=== PATIENT | male | born 1955 | race Caucasian/White ===

== ENCOUNTER 2018-10-30 20:25 | Inpatient (IN) | payer MEDICAID, OTHER ==
[2018-10-30 20:26] VITALS: BMI 22.8
--- NOTE | 2018-10-30 20:53 | C.PDOC ---
History Of Present Illness Patient presents to the ER complaining of bilateral swollen legs and increased abdominal girth. Patient has been refusing to see a doctor for years. Patient is a chronic alcoholic, last drink was today. Denies fever, chills, nausea, or vomiting. Time Seen by Provider: 10/30/18 20:53 Chief Complaint (Nursing): Abdominal Pain History Per: Patient History/Exam Limitations: no limitations Onset/Duration Of Symptoms: Days Current Symptoms Are (Timing): Still Present Severity: Moderate Pain Scale Rating Of: 4 Location Of Pain/Discomfort: Diffuse Radiation Of Pain To:: None Quality Of Discomfort: Dull, Pressure Associated Symptoms: Other (Swollen legs, increased abdominal girth). denies: Fever, Chills, Nausea, Vomiting Exacerbating Factors: None Alleviating Factors: None Last Bowel Movement: Yesterday Recent travel outside of the [place]: No Additional History Per: Family Past Medical History Reviewed: Historical Data, Nursing Documentation, Vital Signs Vital Signs: Last Vital Signs Temp 98.1 F 10/30/18 20:32 Pulse 106 H 10/30/18 20:32 Resp 20 10/30/18 20:32 BP 121/80 10/30/18 20:32 Pulse Ox 95 10/30/18 20:32 - Medical History PMH: Anemia Denies: Chronic Kidney Disease Surgical History: Endoscopy - [facility] Procedures EXCISION OF STOMACH, ENDO, DIAGN (06/08/16) INSPECTION OF LOWER INTESTINAL TRACT, ENDO (08/09/15) INSPECTION OF UPPER INTESTINAL TRACT, ENDO (08/09/15) INTRODUCTION OF OTHER THERAPEUTIC SUBSTANCE INTO UP GI, ENDO (06/08/16) TRANSFUSE NONAUT RED BLOOD CELLS IN PERIPH VEIN, PERC (08/09/15) Family History: States: No Known Family Hx - Social History Hx Alcohol Use: Yes (3-4 bottles beer per day) Hx Substance Use: No - Immunization History Hx Tetanus Toxoid Vaccination: No Hx Influenza Vaccination: No Hx Pneumococcal Vaccination: No Review Of Systems Constitutional: Negative for: Fever, Chills Cardiovascular: Negative for: Chest Pain, Palpitations Respiratory: Negative for: Cough, Shortness of Breath Gastrointestinal: Positive for: Other (Increased abdominal girth). Negative for: Nausea, Vomiting Musculoskeletal: Positive for: Other (Bilateral swollen legs) Neurological: Negative for: Weakness, Numbness Physical Exam - Physical Exam Appears: Non-toxic Skin: Warm, Dry, Other (Somewhat cachetic) Head: Normacephalic Eye(s): bilateral: Scleral Icterus Oral Mucosa: Dry Neck: Trachea Midline, Supple Chest: Symmetrical, No Tenderness Cardiovascular: Rhythm Regular Respiratory: No Rales, Rhonchi (Scattered), No Wheezing Gastrointestinal/Abdominal: Soft, No Tenderness, Other (Very distended with positive fluid wave, unable to percuss liver due to girth) Back: No CVA Tenderness Extremity: Pedal Edema (Bilateral up to thigh) Extremity: Bilateral: Atraumatic Pulses: Left Dorsalis Pedis: Normal, Right Dorsalis Pedis: Normal Neurological/Psych: Oriented x3, Other (No flapping tremor) Gait: With Assistance ED Course And Treatment - Laboratory Results Result Diagrams: 10/30/18 22:08 10/30/18 22:08 ECG: Interpreted By Me, Viewed By Me ECG Rhythm: Sinus Rhythm, ST/T Changes, Nonspecific Changes O2 Sat by Pulse Oximetry: 95 (Room air) Pulse Ox Interpretation: Normal - Radiology CXR: Interpreted by Me, Viewed By Me CXR Interpretation: Yes: Cardiomegaly, Other (ascitis, right effusion). No: Infiltrates, Fracture Progress Note: Blood work, EKG, CXR, and urinalysis ordered. Disposition Discussed With DrRadha: Zachary Bergman Comment: accepted the pt on his service and took over the care at 12:00AM Doctor Will See Patient In The: ED Counseled Patient/Family Regarding: Studies Performed, Diagnosis - Disposition Disposition: HOSPITALIZED Disposition Time: 20:53 Condition: GUARDED Forms: [facility] ([place]) - POA Present On Arrival: Poor Glycemic Control - Clinical Impression Clinical Impression: Abdominal pain, Ascites, Anemia, ETOH abuse, Cirrhosis - Scribe Statement The provider has reviewed the documentation as recorded by the Scribann Nash All medical record entries made by the Scribe were at my direction and personally dictated by me. I have reviewed the chart and agree that the record accurately reflects my personal performance of the history, physical exam, medical decision making, and the department course for this patient. I have also personally directed, reviewed, and agree with the discharge instructions and disposition. Decision To Admit - Pt Status Changed To: Hospital Disposition Of: Inpatient - Admit Certification Admit to Inpatient:: After my assessment, the patient will require hosp italization for at least two midnights. This is because of the severity of symptoms shown, intensity of services needed, and/or the medical risk in this patient being treated as an outpatient. - InPatient: Physician Admission Certification:: After my assessment, the patient will require hospitalization for at least two midnights. This is because of the gianni rity of symptoms shown, intensity of services needed, and/or the medical risk in this patient being treated as an outpatient. - . Bed Request Type: Regular Admitting Physician: Zachary Bergman Patient Diagnosis: Abdominal pain, Ascites, Anemia, ETOH abuse, Cirrhosis
[2018-10-30 22:27] LABS: BASO % 1.3 % (0.0-2.0); EOS # 0.1 K/uL (0.0-0.7); EOS % 3.7 % (0.0-4.0); HEMOGLOBIN 8.1 g/dL (12.0-18.0); LYMPH # 1.1 K/uL (1.0-4.3); LYMPH % 42.9 % (20.0-40.0); MEAN CELL VOLUME 66.4 fL (80.0-94.0); MEAN CORPUSCULAR HEMOGLOBIN 20.3 pg (27.0-31.0); MEAN CORPUSCULAR HGB CONC 30.5 g/dL (33.0-37.0); MEAN PLATELET VOLUME 8.4 fL (7.2-11.7); MONO # 0.3 K/uL (0.0-0.8); MONO % 11.4 % (0.0-10.0); NEUT # 1.1 K/uL (1.8-7.0); NEUT % 40.7 % (50.0-75.0); NRBC % 0.1 % (0.0-2.0); RBC 4.01 Mil/uL (4.40-5.90); RED CELL DISTRIBUTION WIDTH 19.7 % (11.5-14.5)
[2018-10-30 22:30] LABS: INR 2.1; PROTHROMBIN TIME 23.4 SECONDS (9.7-12.2)
[2018-10-30 22:32] LABS: ALB/GLOB RATIO 0.6 (1.0-2.1); ALBUMIN 2.6 g/dL (3.5-5.0); ALT/SGPT 25 U/L (21-72); AST/SGOT 37 U/L (17-59); BLOOD UREA NITROGEN 12 mg/dL (9-20); CALCIUM 7.7 mg/dl (8.6-10.4); GFR NON-AFRICAN AMERICAN > 60; LIPASE 71 U/L (23-300)
[2018-10-30 22:34] LABS: WHITE BLOOD COUNT 2.7 K/uL (4.8-10.8)
[2018-10-30 22:43] LABS: B-TYPE NATRIURETIC PEPTIDE 74.3 pg/mL (0-900)
[2018-10-30] MEDS ORDERED: Iodixanol 320 MG/ML 100 ML BOTTLE IV ONE ×2 (22:56→23:07)
--- NOTE | 2018-10-31 00:37 | CP.PCM.HP ---
<Deuce Pugh - Last Filed: 10/31/18 06:26> History of Present Illness - History of Present Illness History of Present Illness: cc: abdominal swelling and pain Patient is a 63 year old male with pmhx of DMII and HTN that came to the ER for increased abdominal swelling and pain. Patient state he noted his abdomen to get distended about a month ago, starting on the left lower quadrant and then, the swelling increasing in right upper quadrant area of abdomen. Patient admits to drinking 6 packs of beer every day for the past 20 years, and states he believes alcohol is what is causing his abdomen to be distended. Patient admits to having bilateral leg swelling that started a couple of months ago, and states he first saw his lower extremity swell before seeing his abdomen get distended. Admits to shortness of breath when walking as well as pain in LE. denies fever, chills, chest pain, shortness of breath, n/v/d/c or urinary symptoms. PMD: none, has not seen one since last ER visit 2 years ago All: Penicillin Pmhx: DM, HTN Shx: left arm surgery from trauma (2016) Fmhx: DM (mother and father) Sochx: denies smoking, drinks 6 packs of beer/daily x 20 years, denies drug use Meds: none Present on Admission - Present on Admission Any Indicators Present on Admission: No Past Patient History - Infectious Disease Hx of Infectious Diseases: None - Past Medical History & Family History Past Medical History?: Yes - Past Social History Smoking Status: Never Smoked - CARDIAC Hx Cardiac Disorders: No - PULMONARY Hx Respiratory Disorders: Yes (ABN X RAY) - NEUROLOGICAL Hx Neurological Disorder: No - HEENT Hx Blind: Yes (RIGHT EYE) - RENAL Hx Chronic Kidney Disease: No - ENDOCRINE/METABOLIC Hx Diabetes Mellitus Type 2: Yes - HEMATOLOGICAL/ONCOLOGICAL Hx Anemia: Yes - INTEGUMENTARY Hx Dermatological Problems: No - MUSCULOSKELETAL/RHEUMATOLOGICAL Hx Musculoskeletal Disorders: No - GASTROINTESTINAL Hx Gastrointestinal Disorders: Yes (HX ASCITES) - GENITOURINARY/GYNECOLOGICAL Hx Genitourinary Disorders: No - PSYCHIATRIC Hx Substance Use: No - SURGICAL HISTORY Other/Comment: left arm / surgery - ANESTHESIA Hx Anesthesia: Yes Hx Anesthesia Reactions: No Hx Malignant Hyperthermia: No Meds Allergies/Adverse Reactions: Allergies Allergy/AdvReac Type Severity Reaction Status Date / Time Penicillins Allergy Verified 10/30/18 20:40 Physical Exam - Constitutional Appears: Non-toxic, No Acute Distress - Head Exam Head Exam: ATRAUMATIC, NORMAL INSPECTION, NORMOCEPHALIC - Eye Exam Eye Exam: EOMI - ENT Exam ENT Exam: Mucous Membranes Moist, Normal Exam - Neck Exam Neck exam: Positive for: Normal Inspection - Respiratory Exam Respiratory Exam: Clear to Auscultation Bilateral, NORMAL BREATHING PATTERN. absent: Rales, Rhonchi, Wheezes - Cardiovascular Exam Cardiovascular Exam: REGULAR RHYTHM, +S1, +S2 - GI/Abdominal Exam GI & Abdominal Exam: Distended, Firm. absent: Normal Bowel Sounds, Tenderness Additional comments: ascites - Extremities Exam Extremities exam: Positive for: full ROM, pedal edema. Negative for: tenderness Additional comments: 3+ pitting edema on b/l thigh, leg and foot. - Back Exam Back exam: NORMAL INSPECTION - Neurological Exam Neurological exam: Alert, Oriented x3 - Psychiatric Exam Psychiatric exam: Normal Affect, Normal Mood - Skin Skin Exam: Dry, Intact, Warm Results - Vital Signs Recent Vital Signs: Last Vital Signs Temp 98.1 F 10/30/18 20:32 Pulse 106 H 10/30/18 20:32 Resp 20 10/30/18 20:32 BP 121/80 10/30/18 20:32 Pulse Ox 95 10/31/18 00:01 - Labs Result Diagrams: 10/30/18 22:08 10/30/18 22:08 Labs: Laboratory Results - last 24 hr 10/30/18 10/30/18 10/30/18 22:08 22:08 22:08 WBC 2.7 L D RBC 4.01 L Hgb 8.1 L D Hct 26.6 L MCV 66.4 L D MCH 20.3 L MCHC 30.5 L RDW 19.7 H Plt Count 171 MPV 8.4 Neut % (Auto) 40.7 L Lymph % (Auto) 42.9 H Gage % (Auto) 11.4 H Eos % (Auto) 3.7 Baso % (Auto) 1.3 Neut # (Auto) 1.1 L Lymph # (Auto) 1.1 Gage # (Auto) 0.3 Eos # (Auto) 0.1 Baso # (Auto) 0.0 PT 23.4 H INR 2.1 APTT 37 H Sodium 137 Potassium 4.2 Chloride 109 H Carbon Dioxide 22 Anion Gap 11 BUN 12 Creatinine 0.5 L Est GFR ( Amer) > 60 Est GFR (Non-Af Amer) > 60 Random Glucose 112 H D Calcium 7.7 L Total Bilirubin 2.7 H AST 37 ALT 25 Alkaline Phosphatase 128 H Ammonia NT-Pro-B Natriuret Pep 74.3 Total Protein 6.8 Albumin 2.6 L Globulin 4.2 H Albumin/Globulin Ratio 0.6 L Lipase 71 Alcohol, Quantitative Blood Type Antibody Screen 10/30/18 10/30/18 10/31/18 22:08 22:08 00:14 WBC RBC Hgb Hct MCV MCH MCHC RDW Plt Count MPV Neut % (Auto) Lymph % (Auto) Gage % (Auto) Eos % (Auto) Baso % (Auto) Neut # (Auto) Lymph # (Auto) Gage # (Auto) Eos # (Auto) Baso # (Auto) PT INR APTT Sodium Potassium Chloride Carbon Dioxide Anion Gap BUN Creatinine Est GFR ( Amer) Est GFR (Non-Af Amer) Random Glucose Calcium Total Bilirubin AST ALT Alkaline Phosphatase Ammonia 24 NT-Pro-B Natriuret Pep Total Protein Albumin Globulin Albumin/Globulin Ratio Lipase Alcohol, Quantitative < 10 Blood Type A POSITIVE Antibody Screen Negative Assessment & Plan - Assessment and Plan (Free Text) Plan: Ascites/Fluid overloaded possible due to cirrhosis - based on physical exam - ALT/AST: 37/25 Lipase 21 - Vitals within normal limits - Chest Xray - ascitis, right effusion, cardiomegaly - will follow official report - EKG: Sinus Rhythm, ST/T Changes, Nonspecific Changes - Abd and pelvis CT IV contrast - multifocal subsegmental atelectatic airspace disease in the right lower lobe and lingula. Large ascites, increased. Chronic parenchymal liver disease. prominent periesophageal/perigastric varicosities. Mesenteric edema/congestion. Multifocal edema of small bowel, probably secondary to portal hypertension - Albumin 25gm IV x 1 - Spirinolactone 50mg PO x 1 tonight - Spirinolactone 50mg PO Daily - Lasix 40mg IVP x 1 dose tonight - Lasix 40mg IVP Daily - GI consult - Dr Chandler - help is appreciated - Echo- f/u in am Alcohol use disorder - Ativan 1mg PO Q6 [facility] protocol - Multivitamin/Thiamine Microcytic anemia - Hg 8.1, MCV : 66.4 - no acute bleeding at this time - Vitamin B12 - Iron panel - Folate elevated PT/PTT - Vitamin K 10mg PO Daily - f/u coags Hx of HTN - Normotensive at this time - Patient does not take home meds Hx of DM - Patient does not take home meds - Accuchecks - HbA1c - f/u PPX - HHD - DVT ppx C/I for PT longer than 18, no SCDS due to B/L LE pitting edema - GI: Protonix 40mg IVP daily Plan discussed with Dr Madalyn Pugh, PGY-1 - Date & Time Date: 10/31/18 Time: 01:00 <Zachary Bergman - Last Filed: 10/31/18 07:52> Results - Vital Signs Recent Vital Signs: Last Vital Signs Temp 98.0 F 10/31/18 04:00 Pulse 108 H 10/31/18 04:00 Resp 20 10/31/18 04:00 BP 138/81 10/31/18 04:00 Pulse Ox 93 L 10/31/18 04:00 - Labs Result Diagrams: 10/30/18 22:08 10/30/18 22:08 Labs: Laboratory Results - last 24 hr 10/30/18 10/30/18 10/30/18 22:08 22:08 22:08 WBC 2.7 L D RBC 4.01 L Hgb 8.1 L D Hct 26.6 L MCV 66.4 L D MCH 20.3 L MCHC 30.5 L RDW 19.7 H Plt Count 171 MPV 8.4 Neut % (Auto) 40.7 L Lymph % (Auto) 42.9 H Gage % (Auto) 11.4 H Eos % (Auto) 3.7 Baso % (Auto) 1.3 Neut # (Auto) 1.1 L Lymph # (Auto) 1.1 Gage # (Auto) 0.3 Eos # (Auto) 0.1 Baso # (Auto) 0.0 PT 23.4 H INR 2.1 APTT 37 H Sodium 137 Potassium 4.2 Chloride 109 H Carbon Dioxide 22 Anion Gap 11 BUN 12 Creatinine 0.5 L Est GFR ( Amer) > 60 Est GFR (Non-Af Amer) > 60 POC Glucose (mg/dL) Random Glucose 112 H D Calcium 7.7 L Iron TIBC % Saturation Total Bilirubin 2.7 H AST 37 ALT 25 Alkaline Phosphatase 128 H Ammonia NT-Pro-B Natriuret Pep 74.3 Total Protein 6.8 Albumin 2.6 L Globulin 4.2 H Albumin/Globulin Ratio 0.6 L Lipase 71 Urine Color Urine Clarity Urine pH Ur Specific Canones Urine Protein Urine Glucose (UA) Urine Ketones Urine Blood Urine Nitrate Urine Bilirubin Urine Urobilinogen Ur Leukocyte Esterase Urine WBC (Auto) Urine RBC (Auto) Ur Squamous Epith Cells Urine Bacteria Alcohol, Quantitative Blood Type Antibody Screen 10/30/18 10/30/18 10/31/18 22:08 22:08 00:14 WBC RBC Hgb Hct MCV MCH MCHC RDW Plt Count MPV Neut % (Auto) Lymph % (Auto) Gage % (Auto) Eos % (Auto) Baso % (Auto) Neut # (Auto) Lymph # (Auto) Gage # (Auto) Eos # (Auto) Baso # (Auto) PT INR APTT Sodium Potassium Chloride Carbon Dioxide Anion Gap BUN Creatinine Est GFR ( Amer) Est GFR (Non-Af Amer) POC Glucose (mg/dL) Random Glucose Calcium Iron TIBC % Saturation Total Bilirubin AST ALT Alkaline Phosphatase Ammonia 24 NT-Pro-B Natriuret Pep Total Protein Albumin Globulin Albumin/Globulin Ratio Lipase Urine Color Urine Clarity Urine pH Ur Specific Canones Urine Protein Urine Glucose (UA) Urine Ketones Urine Blood Urine Nitrate Urine Bilirubin Urine Urobilinogen Ur Leukocyte Esterase Urine WBC (Auto) Urine RBC (Auto) Ur Squamous Epith Cells Urine Bacteria Alcohol, Quantitative < 10 Blood Type A POSITIVE Antibody Screen Negative 10/31/18 10/31/18 10/31/18 02:06 06:11 06:44 WBC RBC Hgb Hct MCV MCH MCHC RDW Plt Count MPV Neut % (Auto) Lymph % (Auto) Gage % (Auto) Eos % (Auto) Baso % (Auto) Neut # (Auto) Lymph # (Auto) Gage # (Auto) Eos # (Auto) Baso # (Auto) PT INR APTT Sodium Potassium Chloride Carbon Dioxide Anion Gap BUN Creatinine Est GFR ( Amer) Est GFR (Non-Af Amer) POC Glucose (mg/dL) 146 H Random Glucose Calcium Iron 23 L TIBC 381 % Saturation 6 L Total Bilirubin AST ALT Alkaline Phosphatase Ammonia NT-Pro-B Natriuret Pep Total Protein Albumin Globulin Albumin/Globulin Ratio Lipase Urine Color Gladys Urine Clarity Clear Urine pH 6.0 Ur Specific Canones > 1.060 H Urine Protein Negative Urine Glucose (UA) Normal Urine Ketones Trace Urine Blood Negative Urine Nitrate Negative Urine Bilirubin Negative Urine Urobilinogen 4.0 Ur Leukocyte Esterase Neg Urine WBC (Auto) 1 Urine RBC (Auto) 1 Ur Squamous Epith Cells < 1 Urine Bacteria Rare Alcohol, Quantitative Blood Type Antibody Screen 10/31/18 06:44 WBC RBC Hgb Hct MCV MCH MCHC RDW Plt Count MPV Neut % (Auto) Lymph % (Auto) Gage % (Auto) Eos % (Auto) Baso % (Auto) Neut # (Auto) Lymph # (Auto) Gage # (Auto) Eos # (Auto) Baso # (Auto) PT INR APTT Sodium Potassium Chloride Carbon Dioxide Anion Gap BUN Creatinine Est GFR ( Amer) Est GFR (Non-Af Amer) POC Glucose (mg/dL) Random Glucose Calcium Iron 19 L TIBC % Saturation 5 L Total Bilirubin AST ALT Alkaline Phosphatase Ammonia NT-Pro-B Natriuret Pep Total Protein Albumin Globulin Albumin/Globulin Ratio Lipase Urine Color Urine Clarity Urine pH Ur Specific Canones Urine Protein Urine Glucose (UA) Urine Ketones Urine Blood Urine Nitrate Urine Bilirubin Urine Urobilinogen Ur Leukocyte Esterase Urine WBC (Auto) Urine RBC (Auto) Ur Squamous Epith Cells Urine Bacteria Alcohol, Quantitative Blood Type Antibody Screen Attending/Attestation - Attestation I have personally seen and examined this patient.: Yes I have fully participated in the care of the patient.: Yes I have reviewed all pertinent clinical information: Yes Notes (Text): 10/31/18 07:44 * Alcoholic liver cirrhosis with massive ascitis and 4+ edema * hepatic failure with low albumin, elevated inr * Active alcohol consumption in moderate amount * Microcytic anemia suggesting chronic blood loss * H/o prior gi bleeding, and black stools a month back * Intravascular volume stable Plan * IV albumin, +/-blood * Diuresis with lasix and spirnolactone * PPI * Thiamine, fa, mvt, schedule and prn ativan * Vit K * Possible ascitic tap. * Counselled about alcohol cessation * See orders for detail.
[2018-10-31 02:29] LABS: SQUAMOUS EPITHIAL < 1 /hpf (0-5); URINE BACTERIA RARE (<OCC); URINE BILIRUBIN NEGATIVE (NEGATIVE); URINE BLOOD NEGATIVE (NEGATIVE); URINE CLARITY Clear (Clear); URINE COLOR Amber (YELLOW); URINE GLUCOSE (UA) NORMAL (Normal); URINE LEUKOCYTE ESTERASE NEG Leu/uL (Negative); URINE PROTEIN NEGATIVE (NEGATIVE)
[2018-10-31] MEDS ORDERED: Albumin Human 25% (12.5 gm/50 ml) IV ONE (02:30)
[2018-10-31 07:21] LABS: IRON 19 ug/dL (49-181); IRON 23 ug/dL (49-181)
[2018-10-31 07:30] LABS: % IRON SATURATION 5 (20-55); % IRON SATURATION 6 (20-55); TOTAL IRON BINDING CAPACITY 381 ug/dL (250-450)
--- NOTE | 2018-10-31 09:06 | RAD ---
Date of service: 10/30/2018 PROCEDURE: CHEST RADIOGRAPH, 1 VIEW HISTORY: Abdominal pain COMPARISON: None available. FINDINGS: LUNGS: There are low lung volumes. There is moderate pulmonary venous congestion. PLEURA: Suspect small effusions. No pneumothorax. CARDIOVASCULAR: Mild cardiomegaly. No aortic atherosclerotic calcifications present. OSSEOUS STRUCTURES: Within normal limits for the patient's age. VISUALIZED UPPER ABDOMEN: Normal. OTHER FINDINGS: Diffuse opacification of the abdomen with elevation of the diaphragm most compatible with ascites. IMPRESSION: Mild cardiomegaly and pulmonary venous congestion. Ascites.
[2018-10-31] MEDS: Multiple Vitamins Oral Solution PO SCH (09:21)
--- NOTE | 2018-10-31 09:38 | CP.PCM.CON ---
History of Present Illness - History of Present Illness History of Present Illness: GI Service Consult cc: anemia, ascites HPI: GI consult requested to evaluate this 63 yr old man for ascites and anemia. Pt is a poor historian. Chart review reveals long h/o cirrhosis, ascites, had EGD and Colonoscopy [address] Wang- small varices + . Now with anasarca and dyspnea x 1 month. Does not see a doctor, nor does he take medications. Known history of alcoholic cirrhosis and ascites. Now with severe iron deficiency a nemia. Pt saw black stool 1 month ago, now brown colored. Recently constipated. Past Patient History - Infectious Disease Hx of Infectious Diseases: None - Past Medical History & Family History Past Medical History?: Yes - Past Social History Smoking Status: Never Smoked - CARDIAC Hx Cardiac Disorders: No - PULMONARY Hx Respiratory Disorders: Yes (ABN X RAY) - NEUROLOGICAL Hx Neurological Disorder: No - HEENT Hx Blind: Yes (RIGHT EYE) - RENAL Hx Chronic Kidney Disease: No - ENDOCRINE/METABOLIC Hx Diabetes Mellitus Type 2: Yes - HEMATOLOGICAL/ONCOLOGICAL Hx Anemia: Yes - INTEGUMENTARY Hx Dermatological Problems: No - MUSCULOSKELETAL/RHEUMATOLOGICAL Hx Musculoskeletal Disorders: No - GASTROINTESTINAL Hx Gastrointestinal Disorders: Yes (HX ASCITES) - GENITOURINARY/GYNECOLOGICAL Hx Genitourinary Disorders: No - PSYCHIATRIC Hx Substance Use: No - SURGICAL HISTORY Other/Comment: left arm / surgery - ANESTHESIA Hx Anesthesia: Yes Hx Anesthesia Reactions: No Hx Malignant Hyperthermia: No Meds Allergies/Adverse Reactions: Allergies Allergy/AdvReac Type Severity Reaction Status Date / Time Penicillins Allergy Verified 10/30/18 20:40 - Medications Medications: Current Medications Furosemide (Lasix) 40 mg IVP DAILY [facility] Last Admin: 10/31/18 09:21 Dose: 40 mg Influenza Virus Vaccine (Flucelvax Quad [id number] Syr) 60 mcg IM .ONCE ONE Stop: 11/02/18 14:01 Lorazepam (Ativan) 1 mg PO Q6H [facility] Last Admin: 10/31/18 08:03 Dose: 1 mg Multivitamins/Vitamin C (Multi-Delyn Liquid) 5 ml PO DAILY [facility] Last Admin: 10/31/18 09:21 Dose: 5 ml Pantoprazole Sodium (Protonix Inj) 40 mg IVP DAILY [facility] Last Admin: 10/31/18 09:21 Dose: 40 mg Phytonadione (Vitamin K Tab) 10 mg PO DAILY [facility] Last Admin: 10/31/18 09:21 Dose: 10 mg Pneumococcal Polyvalent Vaccine (Pneumovax 23 Vaccine) 0.5 ml IM .ONCE ONE Stop: 11/02/18 14:01 Spironolactone (Aldactone) 50 mg PO DAILY [facility] Last Admin: 10/31/18 09:21 Dose: 50 mg Thiamine HCl (Vitamin B1 Tab) 100 mg PO DAILY [facility] Last Admin: 10/31/18 09:21 Dose: 100 mg Physical Exam - Constitutional Appears: Chronically Ill - Head Exam Additional comments: bitemporal wasting - Eye Exam Eye Exam: Scleral icterus - Respiratory Exam Respiratory Exam: NORMAL BREATHING PATTERN - Cardiovascular Exam Cardiovascular Exam: REGULAR RHYTHM - GI/Abdominal Exam GI & Abdominal Exam: Distended (massive ascites. Nontender. Organomegaly not appreciated) - Extremities Exam Additional comments: Massive pitting edema of lower exts from toes up to thighs - Neurological Exam Neurological exam: Alert, Oriented x3 - Psychiatric Exam Psychiatric exam: Flat Affect - Skin Additional comments: spider angiomata present on abdominal wall Results - Vital Signs Recent Vital Signs: Last Vital Signs Temp 97.7 F 10/31/18 08:22 Pulse 112 H 10/31/18 08:22 Resp 20 10/31/18 08:22 BP 133/86 10/31/18 09:21 Pulse Ox 94 L 10/31/18 08:22 - Labs Result Diagrams: 10/30/18 22:08 10/30/18 22:08 Labs: Laboratory Results - last 24 hr 10/30/18 10/30/18 10/30/18 22:08 22:08 22:08 WBC 2.7 L D RBC 4.01 L Hgb 8.1 L D Hct 26.6 L MCV 66.4 L D MCH 20.3 L MCHC 30.5 L RDW 19.7 H Plt Count 171 MPV 8.4 Neut % (Auto) 40.7 L Lymph % (Auto) 42.9 H [place] % (Auto) 11.4 H Eos % (Auto) 3.7 Baso % (Auto) 1.3 Neut # (Auto) 1.1 L Lymph # (Auto) 1.1 [place] # (Auto) 0.3 Eos # (Auto) 0.1 Baso # (Auto) 0.0 PT 23.4 H INR 2.1 APTT 37 H Sodium 137 Potassium 4.2 Chloride 109 H Carbon Dioxide 22 Anion Gap 11 BUN 12 Creatinine 0.5 L Est GFR ( Amer) > 60 Est GFR (Non-Af Amer) > 60 POC Glucose (mg/dL) Random Glucose 112 H D Calcium 7.7 L Iron TIBC % Saturation Total Bilirubin 2.7 H AST 37 ALT 25 Alkaline Phosphatase 128 H Ammonia NT-Pro-B Natriuret Pep 74.3 Total Protein 6.8 Albumin 2.6 L Globulin 4.2 H Albumin/Globulin Ratio 0.6 L Lipase 71 Urine Color Urine Clarity Urine pH Ur Specific [place] Urine Protein Urine Glucose (UA) Urine Ketones Urine Blood Urine Nitrate Urine Bilirubin Urine Urobilinogen Ur Leukocyte Esterase Urine WBC (Auto) Urine RBC (Auto) Ur Squamous Epith Cells Urine Bacteria Alcohol, Quantitative Blood Type Antibody Screen 10/30/18 10/30/18 10/31/18 22:08 22:08 00:14 WBC RBC Hgb Hct MCV MCH MCHC RDW Plt Count MPV Neut % (Auto) Lymph % (Auto) [place] % (Auto) Eos % (Auto) Baso % (Auto) Neut # (Auto) Lymph # (Auto) [place] # (Auto) Eos # (Auto) Baso # (Auto) PT INR APTT Sodium Potassium Chloride Carbon Dioxide Anion Gap BUN Creatinine Est GFR ( Amer) Est GFR (Non-Af Amer) POC Glucose (mg/dL) Random Glucose Calcium Iron TIBC % Saturation Total Bilirubin AST ALT Alkaline Phosphatase Ammonia 24 NT-Pro-B Natriuret Pep Total Protein Albumin Globulin Albumin/Globulin Ratio Lipase Urine Color Urine Clarity Urine pH Ur Specific [place] Urine Protein Urine Glucose (UA) Urine Ketones Urine Blood Urine Nitrate Urine Bilirubin Urine Urobilinogen Ur Leukocyte Esterase Urine WBC (Auto) Urine RBC (Auto) Ur Squamous Epith Cells Urine Bacteria Alcohol, Quantitative < 10 Blood Type A POSITIVE Antibody Screen Negative 10/31/18 10/31/18 10/31/18 02:06 06:11 06:44 WBC RBC Hgb Hct MCV MCH MCHC RDW Plt Count MPV Neut % (Auto) Lymph % (Auto) [place] % (Auto) Eos % (Auto) Baso % (Auto) Neut # (Auto) Lymph # (Auto) [place] # (Auto) Eos # (Auto) Baso # (Auto) PT INR APTT Sodium Potassium Chloride Carbon Dioxide Anion Gap BUN Creatinine Est GFR ( Amer) Est GFR (Non-Af Amer) POC Glucose (mg/dL) 146 H Random Glucose Calcium Iron 23 L TIBC 381 % Saturation 6 L Total Bilirubin AST ALT Alkaline Phosphatase Ammonia NT-Pro-B Natriuret Pep Total Protein Albumin Globulin Albumin/Globulin Ratio Lipase Urine Color Gladys Urine Clarity Clear Urine pH 6.0 Ur Specific [place] > 1.060 H Urine Protein Negative Urine Glucose (UA) Normal Urine Ketones Trace Urine Blood Negative Urine Nitrate Negative Urine Bilirubin Negative Urine Urobilinogen 4.0 Ur Leukocyte Esterase Neg Urine WBC (Auto) 1 Urine RBC (Auto) 1 Ur Squamous Epith Cells < 1 Urine Bacteria Rare Alcohol, Quantitative Blood Type Antibody Screen 10/31/18 06:44 WBC RBC Hgb Hct MCV MCH MCHC RDW Plt Count MPV Neut % (Auto) Lymph % (Auto) [place] % (Auto) Eos % (Auto) Baso % (Auto) Neut # (Auto) Lymph # (Auto) [place] # (Auto) Eos # (Auto) Baso # (Auto) PT INR APTT Sodium Potassium Chloride Carbon Dioxide Anion Gap BUN Creatinine Est GFR ( Amer) Est GFR (Non-Af Amer) POC Glucose (mg/dL) Random Glucose Calcium Iron 19 L TIBC % Saturation 5 L Total Bilirubin AST ALT Alkaline Phosphatase Ammonia NT-Pro-B Natriuret Pep Total Protein Albumin Globulin Albumin/Globulin Ratio Lipase Urine Color Urine Clarity Urine pH Ur Specific [place] Urine Protein Urine Glucose (UA) Urine Ketones Urine Blood Urine Nitrate Urine Bilirubin Urine Urobilinogen Ur Leukocyte Esterase Urine WBC (Auto) Urine RBC (Auto) Ur Squamous Epith Cells Urine Bacteria Alcohol, Quantitative Blood Type Antibody Screen Assessment & Plan (1) Anemia Assessment and Plan: severe iron deficiency without active bleeding Will need elective EGD when medically stable PPI empirically Monitor for bleeding Correct coagulopathy Status: Acute (2) Cirrhosis Assessment and Plan: alcoholic cirrhosis with massive ascites/anasarca Needs diagnostic paracentesis after correction of coagulopathy Start diuretics, low salt diet, monitor daily weights D/W attending Status: Acute - Date & Time Date: 10/31/18 Time: 09:45
--- NOTE | 2018-10-31 10:35 | CP.PCM.PN ---
Subjective - Date & Time of Evaluation Date of Evaluation: 10/31/18 Time of Evaluation: 09:45 - Subjective Subjective: Patient was seen and examined by me Reviewed HPI Patient was not in any acute distress when we came and saw him this morning. Patient has history of liver cirrhotics as well as alcohol abuse Reported the abdomen distention as previously mentioned. He is having difficulty breathing from the distention. Otherwise denies chest pain, denies palpitations. He received vitamin K last night and albumin x 1. Also on lasix and aldactone Objective - Vital Signs/Intake and Output Vital Signs (last 24 hours): Temp Pulse Resp BP Pulse Ox 97.7 F 112 H 20 133/86 94 L 10/31/18 08:22 10/31/18 08:22 10/31/18 08:22 10/31/18 09:21 10/31/18 08:22 Intake and Output: 10/31/18 10/31/18 06:59 18:59 Intake Total 520 Output Total 600 Balance -80 - Medications Medications: Current Medications Furosemide (Lasix) 40 mg IVP DAILY [facility] Last Admin: 10/31/18 09:21 Dose: 40 mg Influenza Virus Vaccine (Flucelvax Quad [id number] Syr) 60 mcg IM .ONCE ONE Stop: 11/02/18 14:01 Lorazepam (Ativan) 1 mg PO Q6H [facility] Last Admin: 10/31/18 08:03 Dose: 1 mg Multivitamins/Vitamin C (Multi-Delyn Liquid) 5 ml PO DAILY [facility] Last Admin: 10/31/18 09:21 Dose: 5 ml Pantoprazole Sodium (Protonix Ec Tab) 40 mg PO DAILY [facility] Phytonadione (Vitamin K Tab) 10 mg PO DAILY [facility] Last Admin: 10/31/18 09:21 Dose: 10 mg Pneumococcal Polyvalent Vaccine (Pneumovax 23 Vaccine) 0.5 ml IM .ONCE ONE Stop: 11/02/18 14:01 Spironolactone (Aldactone) 50 mg PO DAILY [facility] Last Admin: 10/31/18 09:21 Dose: 50 mg Thiamine HCl (Vitamin B1 Tab) 100 mg PO DAILY [facility] Last Admin: 10/31/18 09:21 Dose: 100 mg - Labs Labs: 10/30/18 22:08 10/30/18 22:08 PT 23.4 SECONDS (9.7-12.2) H 10/30/18 22:08 INR 2.1 10/30/18 22:08 APTT 37 SECONDS (21-34) H 10/30/18 22:08 - Constitutional Appears: No Acute Distress, Unkempt, Chronically Ill - Head Exam Head Exam: NORMAL INSPECTION, NORMOCEPHALIC - Eye Exam Eye Exam: EOMI, Normal appearance - ENT Exam ENT Exam: Mucous Membranes Moist - Respiratory Exam Respiratory Exam: Decreased Breath Sounds, Rales - Cardiovascular Exam Cardiovascular Exam: REGULAR RHYTHM - GI/Abdominal Exam GI & Abdominal Exam: Distended, Soft. absent: Firm, Guarding, Rigid, Tenderness Additional comments: Very distended abdomen with fluid wave shifting - Extremities Exam Extremities Exam: Pedal Edema Additional comments: Bilateral heavy pitting edema +3 - Neurological Exam Neurological Exam: Alert, Awake, Oriented x3 Neuro motor strength exam: Left Upper Extremity: 5, Right Upper Extremity: 5, Left Lower Extremity: 5, Right Lower Extremity: 5 - Psychiatric Exam Psychiatric exam: Depressed, Flat Affect Assessment and Plan - Assessment and Plan (Free Text) Assessment: Ascites/Fluid overloaded possible due to cirrhosis 10/31: Will need paracentesis, INR is somewhat elevated, he received christina K last night. We will need die finisher as well as consent form. Continue on Lasix and Aldactone - based on physical exam - ALT/AST: 37/25 Lipase 21 - Vitals within normal limits - Chest Xray - ascitis, right effusion, cardiomegaly - will follow official report - EKG: Sinus Rhythm, ST/T Changes, Nonspecific Changes - Abd and pelvis CT IV contrast - multifocal subsegmental atelectatic airspace disease in the right lower lobe and lingula. Large ascites, increased. Chronic parenchymal liver disease. prominent periesophageal/perigastric varicosities. Mesenteric edema/congestion. Multifocal edema of small bowel, probably secondary to portal hypertension - Albumin 25gm IV x 1 - Spirinolactone 50mg PO x 1 tonight - Spirinolactone 50mg PO Daily - Lasix 40mg IVP x 1 dose tonight - Lasix 40mg IVP Daily - GI consult - Dr Chandler - help is appreciated - Echo- f/u in am Alcohol use disorder 10/31: Currently no shaking or tremors at this moment - Ativan 1mg PO Q6 [facility] protocol - Multivitamin/Thiamine Microcytic anemia - Hg 8.1, MCV : 66.4 - no acute bleeding at this time - Vitamin B12 - Iron panel - Folate elevated PT/PTT - Vitamin K 10mg PO Daily - f/u coags Hx of HTN 10/31: Continue to monitor as he will have a paracenteis soon and likley require additional albumin Hx of DM - Patient does not take home meds - Accuchecks - HbA1c - f/u PPX - HHD - DVT ppx C/I for PT longer than 18, no SCDS due to B/L LE pitting edema - GI: Protonix 40mg IVP daily
[2018-10-31 12:00] LABS: FOLATE 10.8 ng/mL
[2018-10-31 12:51] LABS: INR 2.2; PROTHROMBIN TIME 24.6 SECONDS (9.7-12.2)
--- NOTE | 2018-10-31 13:45 | CT ---
Date of service: 10/30/2018 PROCEDURE: CT Abdomen and Pelvis with contrast HISTORY: abd pain , ascitis, COMPARISON: 08/15/2015. TECHNIQUE: CT scan of the abdomen and pelvis was performed after administration of intravenous contrast. Oral contrast was not administered. Coronal and sagittal reformatted images were obtained. Contrast dose: Radiation dose: Total exam DLP = 984.93 mGy-cm. This CT exam was performed using one or more of the following dose reduction techniques: Automated exposure control, adjustment of the mA and/or kV according to patient size, and/or use of iterative reconstruction technique. FINDINGS: LOWER THORAX: Confluent airspace disease in the right lower lobe. The left lung base is clear. LIVER: Nodular cirrhotic liver. Fatty infiltration. Homogeneous enhancement. No gross lesion or ductal dilatation. GALLBLADDER AND BILE DUCTS: Partially contracted. Small calcified stone in the neck of the gallbladder. PANCREAS: Normal in size with homogeneous enhancement. No gross lesion or ductal dilatation. SPLEEN: Normal in size and appearance. ADRENALS: No discrete nodule. KIDNEYS AND URETERS: Normal in size with homogeneous enhancement. No hydronephrosis. No solid mass. VASCULATURE: No aortic aneurysm. Extensive portosystemic varices including perisplenic, splenorenal, short gastric and esophageal varices. BOWEL: Evaluation of the bowel is limited in the absence of oral contrast. The proximal small bowel loops are normal in caliber. There is mild dilatation of fluid-filled mid and distal small bowel loops with mild wall enhancement. The colon is grossly normal in appearance. No bowel wall thickening or obstruction. APPENDIX: Not distinctly identified. PERITONEUM: Large abdominal and pelvic ascites. No free air. LYMPH NODES: No enlarged lymph nodes. BLADDER: Well distended and normal in appearance. REPRODUCTIVE: The prostate gland is normal in size. BONES: No acute fracture. Within normal limits for the patient's age. OTHER FINDINGS: Diffuse anasarca. IMPRESSION: Cirrhosis of liver, extensive portosystemic varices and large abdominal and pelvic ascites. Confluent airspace disease in the right lower lobe may represent subsegmental atelectasis however superimposed pneumonia cannot be excluded. Follow-up is advised. A preliminary report was provided by [facility].
--- NOTE | 2018-10-31 16:08 | PCM.PROC ---
Procedures Attestation:: I certify that I have explained the specified Operation(s) or Procedure(s), risks, benefits and reasonable alternatives to the Patient and/or other person responsible. The opportunity was given to ask questions and all questions answered - Paracentesis Consent Obtained: written consent Indication: Ascites Procedure: therapeutic paracentesis (under localized ultrasound, removed approximately 8.5L. Repeatedly checked BP during procedure; BP post removal 113/70.), diagnostic paracentesis Location: RLQ Local Anesthetic Used: lidocaine 1%
[2018-10-31 17:11] LABS: BODY FLUID TYPE PERITONEAL/ASCITES
[2018-10-31 17:30] LABS: BF GROSS APPEARANCE CLEAR (CLEAR)
[2018-10-31] MEDS: Albumin Human 25% (12.5 gm/50 ml) IV SCH ×4 (18:08→21:00)
[2018-10-31 18:36] LABS: BODY FLUID MONO/MACROPHAGE 12 % (0-0)
[2018-11-01 07:14] LABS: BASO % 0.5 % (0.0-2.0); EOS # 0.1 K/uL (0.0-0.7); EOS % 4.1 % (0.0-4.0); HEMOGLOBIN 7.1 g/dL (12.0-18.0); LYMPH # 0.9 K/uL (1.0-4.3); LYMPH % 29.2 % (20.0-40.0); MEAN CORPUSCULAR HEMOGLOBIN 20.5 pg (27.0-31.0); MEAN PLATELET VOLUME 8.5 fL (7.2-11.7); MONO # 0.5 K/uL (0.0-0.8); MONO % 16.3 % (0.0-10.0); NEUT # 1.5 K/uL (1.8-7.0); NEUT % 49.9 % (50.0-75.0); NRBC % 0.1 % (0.0-2.0); RBC 3.45 Mil/uL (4.40-5.90); RED CELL DISTRIBUTION WIDTH 19.6 % (11.5-14.5)
[2018-11-01 07:18] LABS: MEAN CELL VOLUME 66.3 fL (80.0-94.0)
[2018-11-01 07:44] LABS: ALB/GLOB RATIO 0.7 (1.0-2.1); ALBUMIN 2.4 g/dL (3.5-5.0); ALT/SGPT 30 U/L (21-72); AST/SGOT 32 U/L (17-59); BLOOD UREA NITROGEN 7 mg/dL (9-20); CALCIUM 7.4 mg/dl (8.6-10.4); GFR NON-AFRICAN AMERICAN > 60
[2018-11-01] MEDS: Pantoprazole 40 mg EC Tab PO SCH (09:33)
[2018-11-01] MEDS: Multiple Vitamins Oral Solution PO SCH (09:34)
--- NOTE | 2018-11-01 09:51 | CP.PCM.PN ---
Subjective - Date & Time of Evaluation Date of Evaluation: 11/01/18 Time of Evaluation: 09:00 - Subjective Subjective: Patient had paracentesis last night. I wanted to wait another day but I was notified he was short of breath and so we did it in the afternoon He had 8.5 L removed and we sent the fluid off for studies as well. He then had additional IV albumin given but will need more This morning he felt a lot better. Breathing easier. No chest pain, no palpitations. He still has a lot of lower extremity pitting edema. He says it is less than b efore but it's still a lot Objective - Vital Signs/Intake and Output Vital Signs (last 24 hours): Temp Pulse Resp BP Pulse Ox 97.9 F 84 20 116/67 97 11/01/18 07:00 11/01/18 07:00 11/01/18 07:00 11/01/18 09:33 11/01/18 07:00 Intake and Output: 11/01/18 11/01/18 06:59 18:59 Intake Total 120 Output Total 400 Balance -280 - Medications Medications: Current Medications Furosemide (Lasix) 40 mg IVP DAILY [facility] Last Admin: 11/01/18 09:33 Dose: 40 mg Influenza Virus Vaccine (Flucelvax Quad [id number] Syr) 60 mcg IM .ONCE ONE Stop: 11/02/18 14:01 Lorazepam (Ativan) 1 mg PO Q6H [facility] Last Admin: 11/01/18 07:52 Dose: 1 mg Multivitamins/Vitamin C (Multi-Delyn Liquid) 5 ml PO DAILY [facility] Last Admin: 11/01/18 09:34 Dose: 5 ml Pantoprazole Sodium (Protonix Ec Tab) 40 mg PO DAILY [facility] Last Admin: 11/01/18 09:33 Dose: 40 mg Phytonadione (Vitamin K Tab) 10 mg PO DAILY [facility] Last Admin: 11/01/18 09:34 Dose: 10 mg Pneumococcal Polyvalent Vaccine (Pneumovax 23 Vaccine) 0.5 ml IM .ONCE ONE Stop: 11/02/18 14:01 Spironolactone (Aldactone) 50 mg PO DAILY [facility] Last Admin: 11/01/18 09:33 Dose: 50 mg Thiamine HCl (Vitamin B1 Tab) 100 mg PO DAILY [facility] Last Admin: 11/01/18 09:33 Dose: 100 mg - Labs Labs: 11/01/18 07:02 11/01/18 07:02 PT 24.6 SECONDS (9.7-12.2) H 10/31/18 12:05 INR 2.2 10/31/18 12:05 APTT 35 SECONDS (21-34) H 10/31/18 12:05 - Constitutional Appears: No Acute Distress, Cachectic, Chronically Ill - Head Exam Head Exam: NORMAL INSPECTION, NORMOCEPHALIC - Eye Exam Eye Exam: EOMI, Normal appearance - ENT Exam ENT Exam: Mucous Membranes Moist - Respiratory Exam Respiratory Exam: Clear to Ausculation Bilateral, NORMAL BREATHING PATTERN - Cardiovascular Exam Cardiovascular Exam: REGULAR RHYTHM - GI/Abdominal Exam GI & Abdominal Exam: Soft. absent: Firm, Guarding, Rigid, Tenderness - Neurological Exam Neurological Exam: Alert, Awake, Oriented x3 Neuro motor strength exam: Left Upper Extremity: 5, Right Upper Extremity: 5 - Psychiatric Exam Psychiatric exam: Depressed, Flat Affect Assessment and Plan - Assessment and Plan (Free Text) Assessment: Ascites/Fluid overloaded possible due to cirrhosis 11/01: Status post 8.5 L removed. His blood pressure has been stable. Fluid sent for studies. Patient needs additional albumin Also low Na diet, and also patient education with reguards to alcohol use. Continue with the Lasix and Aldactone. Still has a lot of lower extremity pitting edema 10/31: Will need paracentesis, INR is somewhat elevated, he received christina K last night. We will need rock wool applicator as well as consent form. Continue on Lasix and Aldactone Chest Xray - Ascities pushing up a lot on chest image, right effusion, cardiomegaly Abd and pelvis CT IV contrast - multifocal subsegmental atelectatic airspace disease in the right lower lobe and lingula. Large ascites, increased. Chronic parenchymal liver disease. prominent periesophageal/perigastric varicosities. Mesenteric edema/congestion. Multifocal edema of small bowel, probably secondary to portal hypertension Spirinolactone 50mg PO Daily Lasix 40mg IVP Daily GI consult Alcohol use disorder / withdrawl 11/01: Currently doing ok on the [facility] protocol 10/31: Currently no shaking or tremors at this moment - Ativan 1mg PO Q6 [facility] protocol - Multivitamin/Thiamine Microcytic anemia 11/01: Hgb was 7.1 today, if goes lower may need transfusion. He had FFP and Vitamin K yesterday - Hg 8.1, MCV : 66.4 - no acute bleeding at this time - Vitamin B12 Hx of HTN 11/01: Mostly in the 120s and 130s systolic 10/31: Continue to monitor as he will have a paracenteis soon and likley require additional albumin Hx of DM - Patient does not take home meds - Accuchecks - HbA1c - f/u PPX - HHD - DVT ppx C/I for PT longer than 18, no SCDS due to B/L LE pitting edema - GI: Protonix 40mg IVP daily
[2018-11-01] MEDS ORDERED: Albumin Human 25% (12.5 gm/50 ml) IV ONE ×2 (10:30→12:00)
[2018-11-01 12:53] LABS: HEPATITIS B SURFACE AG Negative (NEGATIVE)
[2018-11-01 12:59] LABS: HEPATITIS A IGM NEGATIVE (NEGATIVE); HEPATITIS B CORE AB NEGATIVE (NEGATIVE)
[2018-11-01 13:10] LABS: HEPATITIS C ANTIBODY NEGATIVE (NEGATIVE)
[2018-11-01] MEDS ORDERED: Potassium Chloride 20 mEq ER Tab PO ONE (13:37)
[2018-11-02 07:07] LABS: BASO % 0.8 % (0.0-2.0); EOS # 0.2 K/uL (0.0-0.7); LYMPH % 29.8 % (20.0-40.0); MEAN CELL VOLUME 66.2 fL (80.0-94.0); MEAN CORPUSCULAR HEMOGLOBIN 20.6 pg (27.0-31.0); MEAN CORPUSCULAR HGB CONC 31.1 g/dL (33.0-37.0); MEAN PLATELET VOLUME 8.4 fL (7.2-11.7); MONO # 0.6 K/uL (0.0-0.8); MONO % 17.2 % (0.0-10.0); NEUT # 1.5 K/uL (1.8-7.0); NEUT % 47.2 % (50.0-75.0); NRBC % 0.1 % (0.0-2.0); RBC 3.41 Mil/uL (4.40-5.90); RED CELL DISTRIBUTION WIDTH 19.4 % (11.5-14.5); WHITE BLOOD COUNT 3.3 K/uL (4.8-10.8)
[2018-11-02 07:25] LABS: ALB/GLOB RATIO 0.8 (1.0-2.1); ALBUMIN 2.6 g/dL (3.5-5.0); ALT/SGPT 28 U/L (21-72); AST/SGOT 34 U/L (17-59); BLOOD UREA NITROGEN 9 mg/dL (9-20); CALCIUM 7.8 mg/dl (8.6-10.4); GFR NON-AFRICAN AMERICAN > 60
--- NOTE | 2018-11-02 09:20 | CP.PCM.PN ---
<Craig Toribio - Last Filed: 11/02/18 13:41> Subjective - Date & Time of Evaluation Date of Evaluation: 11/02/18 Time of Evaluation: 09:16 - Subjective Subjective: Craig Toribio PGY1 Progress Note for Dr. Arevalo Pt was examined at bedside this morning. He complains of lower abdominal pain. He denies any nausea or vomiting or diarrhea at this time. Pt denies dizziness, tremors, headache, chest pain, shortness of breath, dysuria. Objective - Vital Signs/Intake and Output Vital Signs (last 24 hours): Temp Pulse Resp BP Pulse Ox 97.2 F L 90 20 100/57 L 96 11/02/18 07:00 11/02/18 07:00 11/02/18 07:00 11/02/18 07:00 11/02/18 07:00 Intake and Output: 11/02/18 11/02/18 06:59 18:59 Intake Total 150 Output Total 250 Balance -100 - Medications Medications: Current Medications Furosemide (Lasix) 40 mg IVP DAILY [facility] Last Admin: 11/01/18 09:33 Dose: 40 mg Influenza Virus Vaccine (Flucelvax Quad [id number] Syr) 60 mcg IM .ONCE ONE Stop: 11/02/18 14:01 Lorazepam (Ativan) 1 mg PO Q6H [facility] Last Admin: 11/02/18 02:20 Dose: Not Given Multivitamins/Vitamin C (Multi-Delyn Liquid) 5 ml PO DAILY [facility] Last Admin: 11/01/18 09:34 Dose: 5 ml Pantoprazole Sodium (Protonix Ec Tab) 40 mg PO DAILY [facility] Last Admin: 11/01/18 09:33 Dose: 40 mg Phytonadione (Vitamin K Tab) 10 mg PO DAILY [facility] Last Admin: 11/01/18 09:34 Dose: 10 mg Pneumococcal Polyvalent Vaccine (Pneumovax 23 Vaccine) 0.5 ml IM .ONCE ONE Stop: 11/02/18 14:01 Rifaximin (Xifaxan) 200 mg PO BID [facility] Stop: 11/03/18 13:12 Last Admin: 11/01/18 21:40 Dose: 200 mg Spironolactone (Aldactone) 50 mg PO DAILY [facility] Last Admin: 11/01/18 09:33 Dose: 50 mg Thiamine HCl (Vitamin B1 Tab) 100 mg PO DAILY [facility] Last Admin: 11/01/18 09:33 Dose: 100 mg - Labs Labs: 11/02/18 06:43 11/02/18 06:43 PT 24.6 SECONDS (9.7-12.2) H 10/31/18 12:05 INR 2.2 10/31/18 12:05 APTT 35 SECONDS (21-34) H 10/31/18 12:05 - Constitutional Appears: No Acute Distress, Unkempt - Head Exam Head Exam: ATRAUMATIC, NORMOCEPHALIC - Eye Exam Eye Exam: EOMI, Normal appearance, PERRL - ENT Exam ENT Exam: Mucous Membranes Moist - GI/Abdominal Exam GI & Abdominal Exam: Distended, Soft, Tenderness, Normal Bowel Sounds. absent: Firm Additional comments: tender to palpation of midline lower abdomen striae appreciated fluid wave appreciated - Extremities Exam Extremities Exam: Pedal Edema - Neurological Exam Neurological Exam: Alert, Awake, Oriented x3 - Psychiatric Exam Psychiatric exam: Depressed, Flat Affect Assessment and Plan - Assessment and Plan (Free Text) Assessment: 63yo M with PMH DM, HTN, Hepatic encephalopathy, Etoh abuse admitted for ascites secondary to cirrhosis. S/p paracentesis 11/01 with 8.5L removed Plan: Ascites/Fluid overloaded possible due to cirrhosis - s/p paracentesis 11/01: 8.5 L removed - fluid studies: neutrophils 10, lymphocytes 75 - repleted albumin - CXR: Ascities pushing up a lot on chest image, right effusion, cardiomegaly - CT Abd and pelvis: multifocal subsegmental atelectatic airspace disease in the right lower lobe and lingula. Large ascites, increased. Chronic parenchymal liver disease. prominent periesophageal/perigastric varicosities. Mesenteric edema/congestion. Multifocal edema of small bowel, probably secondary to portal hypertension - low Na diet - lasix 40mg IV daily - spironolactone 50mg PO daily - GI consulted, Dr. Chandler - recs appreciated Alcohol use disorder / withdrawl - pt without tremors - Ativan 1mg PO Q6 [facility] protocol - Multivitamin/Thiamine - cessation counseling Microcytic anemia - H/H 05/10.5 - s/p FFP and Vit K 10/31 - no acute bleeding at this time - Vitamin B12 - transfuse 1u PRBC today Hx of HTN - pt not hypertensive at this time - s/p paracentesis 11/01: 8.5 L removed - continue to monitor Hx of DM - HbA1c 5.4 - Patient does not take home meds - Accuchecks PPX DVT: ppx C/I for PT >18, no SCDS due to B/L LE pitting edema GI: Protonix 40mg IVP daily [facility] Dispo: f/u GI recs for further paracentesis. Counseled pt on medication compliance on d/c Pt seen and case reviewed with Dr. Arevalo <Tacho Arevalo - Last Filed: 11/05/18 21:14> Objective - Vital Signs/Intake and Output Vital Signs (last 24 hours): Temp Pulse Resp BP Pulse Ox 98.2 F 100 H 20 134/78 97 11/05/18 16:00 11/05/18 16:00 11/05/18 16:00 11/05/18 16:00 11/05/18 16:00 Intake and Output: 11/05/18 11/06/18 18:59 06:59 Intake Total 480 Balance 480 - Labs Labs: 11/04/18 07:29 11/04/18 07:29 PT 21.9 SECONDS (9.7-12.2) H 11/03/18 14:10 INR 2.0 11/03/18 14:10 APTT 35 SECONDS (21-34) H 10/31/18 12:05 Attending/Attestation - Attestation I have personally seen and examined this patient.: Yes I have fully participated in the care of the patient.: Yes I have reviewed all pertinent clinical information, including history, physical exam and plan: Yes Notes (Text): seen and examined assessment and the plan discussed with the resident and I agree with the documentation
[2018-11-02] MEDS: Pantoprazole 40 mg EC Tab PO SCH (09:33)
[2018-11-02] MEDS: Multiple Vitamins Oral Solution PO SCH (09:35)
[2018-11-02] MEDS ORDERED: Influenza Vaccine 60 mcg/0.5 mL SYR (4YR UP) IM ONE (14:00)
[2018-11-02] MEDS ORDERED: Pneumococcal 23-Valent Vaccine IM ONE (14:00)
--- NOTE | 2018-11-02 14:52 | CP.PCM.PN ---
Subjective - Date & Time of Evaluation Date of Evaluation: 11/02/18 Time of Evaluation: 14:50 - Subjective Subjective: s/p paracentesis Denies abdominal pain Anemic Awaiting ascites fluid studies had EGD and Colonoscopy by Dr Wang 2015. Should have elective EGD repeated when medically stable- refer to clinic as outpatient Objective - Vital Signs/Intake and Output Vital Signs (last 24 hours): Temp Pulse Resp BP Pulse Ox 97.2 F L 90 20 98/57 L 96 11/02/18 07:00 11/02/18 07:00 11/02/18 07:00 11/02/18 09:35 11/02/18 07:00 Intake and Output: 11/02/18 11/02/18 06:59 18:59 Intake Total 150 Output Total 250 Balance -100 - Medications Medications: Current Medications Furosemide (Lasix) 40 mg IVP DAILY [facility] Last Admin: 11/02/18 09:35 Dose: Not Given Lorazepam (Ativan) 1 mg PO Q6H [facility] Last Admin: 11/02/18 08:45 Dose: Not Given Multivitamins/Vitamin C (Multi-Delyn Liquid) 5 ml PO DAILY [facility] Last Admin: 11/02/18 09:35 Dose: 5 ml Pantoprazole Sodium (Protonix Ec Tab) 40 mg PO DAILY [facility] Last Admin: 11/02/18 09:33 Dose: 40 mg Phytonadione (Vitamin K Tab) 10 mg PO DAILY [facility] Last Admin: 11/02/18 09:35 Dose: 10 mg Rifaximin (Xifaxan) 200 mg PO BID [facility] Stop: 11/03/18 13:12 Last Admin: 11/02/18 09:34 Dose: 200 mg Spironolactone (Aldactone) 50 mg PO DAILY [facility] Last Admin: 11/02/18 09:34 Dose: 50 mg Thiamine HCl (Vitamin B1 Tab) 100 mg PO DAILY [facility] Last Admin: 11/02/18 09:34 Dose: 100 mg - Labs Labs: 11/02/18 06:43 11/02/18 06:43 PT 24.6 SECONDS (9.7-12.2) H 10/31/18 12:05 INR 2.2 10/31/18 12:05 APTT 35 SECONDS (21-34) H 10/31/18 12:05 - Constitutional Appears: Chronically Ill - Head Exam Head Exam: NORMOCEPHALIC - GI/Abdominal Exam GI & Abdominal Exam: Distended, Soft. absent: Tenderness - Extremities Exam Additional comments: pitting edema of LEs - Neurological Exam Neurological Exam: Awake, Oriented x3 - Psychiatric Exam Psychiatric exam: Depressed, Flat Affect Assessment and Plan (1) Anemia Assessment & Plan: stable Outpatient EGD - refer to clinic after discharge Status: Acute (2) Cirrhosis Assessment & Plan: alcoholic cirrhosis Continue diuretic management await ascites fluid analysis monitor daily weights low salt diet Status: Acute
[2018-11-02 19:41] VITALS: RESP 20
[2018-11-02] MEDS: guaiFENesin 100 mg/5 ml Syrup UD PO PRN (20:01)
[2018-11-03 00:58] LABS: MEAN CORPUSCULAR HEMOGLOBIN 21.5 pg (27.0-31.0); MEAN CORPUSCULAR HGB CONC 30.3 g/dL (33.0-37.0); MEAN PLATELET VOLUME 8.7 fL (7.2-11.7); RBC 3.7 Mil/uL (4.40-5.90); RED CELL DISTRIBUTION WIDTH 22.3 % (11.5-14.5); WHITE BLOOD COUNT 3.4 K/uL (4.8-10.8)
[2018-11-03 07:00] LABS: ALB/GLOB RATIO 0.7 (1.0-2.1); ALBUMIN 2.5 g/dL (3.5-5.0); ALT/SGPT 27 U/L (21-72); AST/SGOT 32 U/L (17-59); BLOOD UREA NITROGEN 7 mg/dL (9-20); CALCIUM 7.8 mg/dl (8.6-10.4); GFR NON-AFRICAN AMERICAN > 60
[2018-11-03 07:28] LABS: BASO % 0.8 % (0.0-2.0); EOS # 0.3 K/uL (0.0-0.7); EOS % 8.9 % (0.0-4.0); HEMOGLOBIN 7.8 g/dL (12.0-18.0); LYMPH # 0.9 K/uL (1.0-4.3); LYMPH % 28.8 % (20.0-40.0); MEAN CORPUSCULAR HEMOGLOBIN 21.9 pg (27.0-31.0); MEAN CORPUSCULAR HGB CONC 32.2 g/dL (33.0-37.0); MEAN PLATELET VOLUME 8.5 fL (7.2-11.7); MONO # 0.5 K/uL (0.0-0.8); MONO % 16.1 % (0.0-10.0); NEUT # 1.4 K/uL (1.8-7.0); NEUT % 45.4 % (50.0-75.0); RBC 3.54 Mil/uL (4.40-5.90); RED CELL DISTRIBUTION WIDTH 22.1 % (11.5-14.5); WHITE BLOOD COUNT 3.1 K/uL (4.8-10.8)
[2018-11-03 07:29] LABS: MEAN CELL VOLUME 68.1 fL (80.0-94.0)
--- NOTE | 2018-11-03 08:12 | CP.PCM.PN ---
Subjective - Date & Time of Evaluation Date of Evaluation: 11/03/18 Time of Evaluation: 07:30 - Subjective Subjective: f/u cirrhosis Denies RB, melena, abd pain, fever, chills , CP, SOB, NAVARRO Objective - Vital Signs/Intake and Output Vital Signs (last 24 hours): Temp Pulse Resp BP Pulse Ox 98.0 F 90 20 112/70 96 11/03/18 07:00 11/03/18 07:00 11/03/18 07:00 11/03/18 07:00 11/03/18 07:00 Intake and Output: 11/03/18 11/03/18 06:59 18:59 Intake Total 900 Balance 900 - Medications Medications: Current Medications Furosemide (Lasix) 40 mg IVP DAILY [facility] Last Admin: 11/02/18 09:35 Dose: Not Given Guaifenesin (Robitussin) 100 mg PO Q4H PRN PRN Reason: Cough Last Admin: 11/02/18 20:01 Dose: 100 mg Lorazepam (Ativan) 1 mg PO Q6H [facility] Last Admin: 11/03/18 02:44 Dose: 1 mg Multivitamins/Vitamin C (Multi-Delyn Liquid) 5 ml PO DAILY [facility] Last Admin: 11/02/18 09:35 Dose: 5 ml Pantoprazole Sodium (Protonix Ec Tab) 40 mg PO DAILY [facility] Last Admin: 11/02/18 09:33 Dose: 40 mg Phytonadione (Vitamin K Tab) 10 mg PO DAILY [facility] Last Admin: 11/02/18 09:35 Dose: 10 mg Rifaximin (Xifaxan) 200 mg PO BID [facility] Stop: 11/03/18 13:12 Last Admin: 11/02/18 18:12 Dose: 200 mg Spironolactone (Aldactone) 50 mg PO DAILY [facility] Last Admin: 11/02/18 09:34 Dose: 50 mg Thiamine HCl (Vitamin B1 Tab) 100 mg PO DAILY [facility] Last Admin: 11/02/18 09:34 Dose: 100 mg - Labs Labs: 11/03/18 06:36 11/03/18 06:36 PT 24.6 SECONDS (9.7-12.2) H 10/31/18 12:05 INR 2.2 10/31/18 12:05 APTT 35 SECONDS (21-34) H 10/31/18 12:05 - Constitutional Appears: Non-toxic - Respiratory Exam Respiratory Exam: Clear to Ausculation Bilateral - Cardiovascular Exam Cardiovascular Exam: RRR - GI/Abdominal Exam GI & Abdominal Exam: Soft, Normal Bowel Sounds. absent: Tenderness - Neurological Exam Neurological Exam: Alert, Awake Assessment and Plan (1) Anemia Assessment & Plan: Hb stable/ . Rec- outpt follow up. Status: Acute (2) Ascites Status: Acute (3) Cirrhosis Status: Acute (4) ETOH abuse Status: Chronic
[2018-11-03] MEDS: Pantoprazole 40 mg EC Tab PO SCH (10:08)
[2018-11-03] MEDS: Multiple Vitamins Oral Solution PO SCH (10:08)
[2018-11-03] MEDS: guaiFENesin 100 mg/5 ml Syrup UD PO PRN ×2 (10:12→14:16)
[2018-11-03 14:10] LABS: HEMOGLOBIN 8.8 g/dL (12.0-18.0)
[2018-11-03 14:19] LABS: PROTHROMBIN TIME 21.9 SECONDS (9.7-12.2)
--- NOTE | 2018-11-03 14:20 | CP.PCM.PN ---
<Ratna Hwang - Last Filed: 11/03/18 17:18> Subjective - Date & Time of Evaluation Date of Evaluation: 11/03/18 Time of Evaluation: 14:20 - Subjective Subjective: Medicine Progress Note for Dr. Arevalo Patient still complaining of abdominal discomfort, cough, headache. Otherwise patient denies chest pain, nausea, vomiting, diarrhea. Was seen at bedside by himself in the morning and with attending and patient's sister in the afternoon. Patient's sister states he doesn't have anywhere to go after being discharged and would have to discuss with family about discharge planning. Objective - Vital Signs/Intake and Output Vital Signs (last 24 hours): Temp Pulse Resp BP Pulse Ox 98.0 F 90 20 135/78 96 11/03/18 07:00 11/03/18 07:00 11/03/18 07:00 11/03/18 10:07 11/03/18 07:00 Intake and Output: 11/03/18 11/03/18 06:59 18:59 Intake Total 900 Balance 900 - Medications Medications: Current Medications Acetaminophen (Tylenol 325mg Tab) 650 mg PO Q6 PRN PRN Reason: fever+pain Last Admin: 11/03/18 10:15 Dose: 650 mg Furosemide (Lasix) 40 mg PO DAILY [facility] Guaifenesin (Robitussin) 100 mg PO Q4H PRN PRN Reason: Cough Last Admin: 11/03/18 14:16 Dose: 100 mg Lorazepam (Ativan) 1 mg PO Q6H [facility] Last Admin: 11/03/18 08:13 Dose: Not Given Multivitamins/Vitamin C (Multi-Delyn Liquid) 5 ml PO DAILY [facility] Last Admin: 11/03/18 10:08 Dose: 5 ml Pantoprazole Sodium (Protonix Ec Tab) 40 mg PO DAILY [facility] Last Admin: 11/03/18 10:08 Dose: 40 mg Phytonadione (Vitamin K Tab) 10 mg PO DAILY [facility] Last Admin: 11/03/18 10:08 Dose: 10 mg Spironolactone (Aldactone) 50 mg PO DAILY [facility] Last Admin: 11/03/18 10:07 Dose: 50 mg Thiamine HCl (Vitamin B1 Tab) 100 mg PO DAILY [facility] Last Admin: 11/03/18 10:07 Dose: 100 mg - Labs Labs: 11/03/18 13:52 11/03/18 06:36 PT 21.9 SECONDS (9.7-12.2) H 11/03/18 14:10 INR 2.0 11/03/18 14:10 APTT 35 SECONDS (21-34) H 10/31/18 12:05 - Constitutional Appears: Well, Non-toxic - Head Exam Head Exam: ATRAUMATIC, NORMAL INSPECTION, NORMOCEPHALIC - Eye Exam Eye Exam: EOMI, Normal appearance - Neck Exam Neck Exam: Normal Inspection - Respiratory Exam Respiratory Exam: Clear to Ausculation Bilateral, NORMAL BREATHING PATTERN - Cardiovascular Exam Cardiovascular Exam: REGULAR RHYTHM - GI/Abdominal Exam GI & Abdominal Exam: Distended Additional comments: ascitic fluid overload - Extremities Exam Extremities Exam: Pedal Edema (edematous b/l LE) - Neurological Exam Neuro motor strength exam: Left Lower Extremity: 2 (cannot lift against gravity much b/l LE), Right Lower Extremity: 2 - Psychiatric Exam Psychiatric exam: Normal Affect, Normal Mood - Skin Skin Exam: Dry, Intact, Normal Color, Warm Assessment and Plan - Assessment and Plan (Free Text) Assessment: 63yo M with PMH DM, HTN, Hepatic encephalopathy, Etoh abuse admitted for ascites secondary to cirrhosis. cirrhosis - Ascites/Fluid overload - s/p paracentesis 11/01: 8.5 L removed. repleted albumin - Dr. Escamilla IR to do second paracentesis 11/04, INR at 2 on 11/03 - fluid studies: neutrophils 10, lymphocytes 75 - CXR: Ascities pushing up a lot on chest image, right effusion, cardiomegaly - CT Abd and pelvis: multifocal subsegmental atelectatic airspace disease in the right lower lobe and lingula. Large ascites, increased. Chronic parenchymal liver disease. prominent periesophageal/perigastric varicosities. Mesenteric ed shaggy/congestion. Multifocal edema of small bowel, probably secondary to portal hypertension - low Na diet - lasix 40mg PO daily - spironolactone 50mg PO daily - GI consulted, Dr. Chandler - recs appreciated Alcohol use disorder - pt without tremors - Ativan 1mg PO Q6 [facility] - CIWA protocol - Multivitamin/Thiamine - cessation counseling Microcytic anemia - s/p FFP and Vit K 10/31 - no acute bleeding at this time - Vitamin B12 Hx of HTN - pt not hypertensive at this time - s/p paracentesis 11/01: 8.5 L removed, pending paracentesis 11/04 - continue to monitor Hx of DM - HbA1c 5.4 - Patient does not take home meds - Accuchecks PPX DVT: no SCDS due to B/L LE pitting edema, chemical DVT ppx CI due to high PT GI: Protonix 40mg IVP daily [facility] dispo: discharge after paracentesis 11/04, medication rx on chart with note to not discharge until after procedure <Tacho Arevalo - Last Filed: 11/05/18 21:13> Objective - Vital Signs/Intake and Output Vital Signs (last 24 hours): Temp Pulse Resp BP Pulse Ox 97.8 F 95 H 20 111/67 94 L 11/03/18 16:00 11/03/18 16:00 11/03/18 16:00 11/03/18 16:00 11/03/18 16:00 Intake and Output: 11/03/18 11/03/18 06:59 18:59 Intake Total 900 400 Balance 900 400 - Medications Medications: Current Medications Acetaminophen (Tylenol 325mg Tab) 650 mg PO Q6 PRN PRN Reason: fever+pain Last Admin: 11/03/18 10:15 Dose: 650 mg Furosemide (Lasix) 40 mg PO DAILY [facility] Guaifenesin (Robitussin) 100 mg PO Q4H PRN PRN Reason: Cough Last Admin: 11/03/18 14:16 Dose: 100 mg Lorazepam (Ativan) 1 mg PO Q6H [facility] Last Admin: 11/03/18 14:58 Dose: Not Given Multivitamins/Vitamin C (Multi-Delyn Liquid) 5 ml PO DAILY [facility] Last Admin: 11/03/18 10:08 Dose: 5 ml Pantoprazole Sodium (Protonix Ec Tab) 40 mg PO DAILY [facility] Last Admin: 11/03/18 10:08 Dose: 40 mg Phytonadione (Vitamin K Tab) 10 mg PO DAILY [facility] Last Admin: 11/03/18 10:08 Dose: 10 mg Spironolactone (Aldactone) 50 mg PO DAILY [facility] Last Admin: 11/03/18 10:07 Dose: 50 mg Thiamine HCl (Vitamin B1 Tab) 100 mg PO DAILY [facility] Last Admin: 11/03/18 10:07 Dose: 100 mg - Labs Labs: 11/03/18 13:52 11/03/18 06:36 PT 21.9 SECONDS (9.7-12.2) H 11/03/18 14:10 INR 2.0 11/03/18 14:10 APTT 35 SECONDS (21-34) H 10/31/18 12:05 Attending/Attestation - Attestation I have personally seen and examined this patient.: Yes I have fully participated in the care of the patient.: Yes I have reviewed all pertinent clinical information, including history, physical exam and plan: Yes Notes (Text): seen and examined no complain,Echo reviewed by extrusion press supervisor .Dr Sarabia consult appreciated going for paracentesis tomorrow
--- NOTE | 2018-11-04 04:34 | CARD ---
APPROVED REPORT Date of service: 10/31/2018 EXAM: Two-dimensional and M-mode echocardiogram with Doppler and color Doppler. INDICATION Dyspnea anemia, alcohol RISK FACTORS Hypertension Diabetes 2D DIMENSIONS IVSd0.9 (0.7-1.1cm)Aortic Root (2D)2.8 (2.0-3.7cm) LVDd4.1 (3.9-5.9cm)PWd0.7 (0.7-1.1cm) LA Zihomv53 (18-58mL)LVDs2.2 (2.5-4.0cm) FS (%) 46.2 %LVEF (%)65.0 (>50%) LVEF ([place]'s)57.86 %IVC0.00 cm M-Mode DIMENSIONS Left Atrium (MM)4.95 (2.5-4.0cm)IVSd0.61 (0.7-1.1cm) Aortic Root2.98 (2.2-3.7cm)LVDd7.23 (4.0-5.6cm) Aortic Cusp Exc.1.91 (1.5-2.0cm)PWd0.73 (0.7-1.1cm) FS (%) 34 %LVDs4.80 (2.0-3.8cm) TAPSE14.27 cmLVEF (%)61 (>50%) Mitral Valve MV E Cifnmtfo27.1cm/sMV A Wzxuoyav94.5cm/sE/A ratio1.0 TDI Lateral E' Peak V11.77cm/sMedial E' Peak V6.39cm/sE/Lateral E'8.0 E/Medial E'14.7 Tricuspid Valve TR Peak Ayppnxan534jd/sTR Peak Gr.[id number] LEFT VENTRICLE The left ventricle is normal size. There is normal left ventricular wall thickness. Left ventricle systolic function is borderline. The Ejection Fraction is 45-50%. [place] is mildly dyskinetic The left ventricular diastolic function is normal. RIGHT VENTRICLE The right ventricle is normal size. There is normal right ventricular wall thickness. Cannot assess right ventricular systolic function. 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 ATRIA The left atrium is mildly dilated. There is a catheter/pacemaker lead seen in the right atrium. There is a mass vs thrombus suspected in the right atrium. The atrial septum is aneurysmal. AORTIC VALVE The aortic valve is normal in structure. No aortic regurgitation is present. There is no aortic valvular stenosis. There is no aortic valvular vegetation. MITRAL VALVE The mitral valve is normal in structure. There is no evidence of mitral valve prolapse. There is no mitral valve stenosis. Mitral regurgitation is moderate. TRICUSPID VALVE The tricuspid valve is normal in structure. There is mild tricuspid regurgitation. Right ventricular systolic pressure is estimated at 40-50 mmHg. There is mild pulmonary hypertension. PULMONIC VALVE The pulmonic valve is not well visualized. There is no pulmonic valvular regurgitation. GREAT VESSELS The aortic root is normal in size. PERICARDIAL EFFUSION There is a small-moderate loculated anterior pericardial effusion. <Conclusion> Left ventricle systolic function is borderline. The Ejection Fraction is 45-50%. 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 SUGGEST J[facility]ON. There is a mass vs thrombus suspected in the right atrium. No aortic regurgitation is present. Mitral regurgitation is moderate. There is mild tricuspid regurgitation. There is mild pulmonary hypertension. There is no pulmonic valvular regurgitation.
[2018-11-04 06:29] LABS: GLUCOSE PERITONEAL FLUID 119 mg/dL; LDH PERITONEAL FLUID 30 U/L (<63); TOTAL PROTEIN PERITONEAL FLUID <3.0 g/dL
--- NOTE | 2018-11-04 07:07 | CP.PCM.PN ---
<Ratna Hwang - Last Filed: 11/04/18 10:35> Subjective - Date & Time of Evaluation Date of Evaluation: 11/04/18 Time of Evaluation: 07:06 - Subjective Subjective: Medicine Progress Note for Dr. Arevalo Patient seen and examined at bedside this morning. Objective - Vital Signs/Intake and Output Vital Signs (last 24 hours): Temp Pulse Resp BP Pulse Ox 97.9 F 103 H 20 134/85 96 11/03/18 23:05 11/03/18 23:05 11/03/18 23:05 11/03/18 23:05 11/03/18 23:05 Intake and Output: 11/04/18 11/04/18 06:59 18:59 Intake Total 300 Balance 300 - Medications Medications: Current Medications Acetaminophen (Tylenol 325mg Tab) 650 mg PO Q6 PRN PRN Reason: fever+pain Last Admin: 11/03/18 22:46 Dose: 650 mg Furosemide (Lasix) 40 mg PO DAILY [facility] Guaifenesin (Robitussin) 100 mg PO Q4H PRN PRN Reason: Cough Last Admin: 11/03/18 14:16 Dose: 100 mg Lorazepam (Ativan) 1 mg PO Q6H [facility] Last Admin: 11/04/18 02:42 Dose: Not Given Multivitamins/Vitamin C (Multi-Delyn Liquid) 5 ml PO DAILY [facility] Last Admin: 11/03/18 10:08 Dose: 5 ml Pantoprazole Sodium (Protonix Ec Tab) 40 mg PO DAILY [facility] Last Admin: 11/03/18 10:08 Dose: 40 mg Phytonadione (Vitamin K Tab) 10 mg PO DAILY [facility] Last Admin: 11/03/18 10:08 Dose: 10 mg Spironolactone (Aldactone) 50 mg PO DAILY [facility] Last Admin: 11/03/18 10:07 Dose: 50 mg Thiamine HCl (Vitamin B1 Tab) 100 mg PO DAILY [facility] Last Admin: 11/03/18 10:07 Dose: 100 mg - Labs Labs: 11/03/18 13:52 11/03/18 06:36 PT 21.9 SECONDS (9.7-12.2) H 11/03/18 14:10 INR 2.0 11/03/18 14:10 APTT 35 SECONDS (21-34) H 10/31/18 12:05 - Constitutional Appears: Well, Non-toxic - Head Exam Head Exam: ATRAUMATIC, NORMAL INSPECTION, NORMOCEPHALIC - Eye Exam Eye Exam: Normal appearance - ENT Exam ENT Exam: Mucous Membranes Dry - Neck Exam Neck Exam: Normal Inspection - Respiratory Exam Respiratory Exam: Clear to Ausculation Bilateral, NORMAL BREATHING PATTERN - Cardiovascular Exam Cardiovascular Exam: REGULAR RHYTHM - GI/Abdominal Exam GI & Abdominal Exam: Distended (ascitic, tenderness to palpation left flank/LLQ), Rigid - Extremities Exam Extremities Exam: Pedal Edema. absent: Normal Inspection - Neurological Exam Neurological Exam: Alert, Awake - Psychiatric Exam Psychiatric exam: Normal Affect, Normal Mood - Skin Skin Exam: Dry, Intact, Normal Color, Warm Assessment and Plan - Assessment and Plan (Free Text) Assessment: 63yo M with PMH DM, HTN, Hepatic encephalopathy, Etoh abuse admitted for ascites secondary to cirrhosis. cirrhosis - Ascites/Fluid overload - s/p paracentesis 11/01: 8.5 L removed. repleted albumin - Dr. Escamilla IR to do paracentesis 11/04 - fluid studies: neutrophils 10, lymphocytes 75 - CXR: Ascities pushing up a lot on chest image, right effusion, cardiomegaly - CT Abd and pelvis: multifocal subsegmental atelectatic airspace disease in the right lower lobe and lingula. Large ascites, increased. Chronic parenchymal liver disease. prominent periesophageal/perigastric varicosities. Mesenteric edema/congestion. Multifocal edema of small bowel, probably secondary to portal hypertension - low Na diet - lasix 40mg PO daily - spironolactone 50mg PO daily - GI consulted, Dr. Chandler - recs appreciated New finding - RA and RV cardiac masses -noted on ECHO done 10/31, read 11/04 early AM. Recommends [facility]. -Dr. Sarabia cardio consulted, pending recs. Alcohol use disorder - pt without tremors - Ativan 1mg PO Q6 - d/cherelle - patient w/o withdrawal sx - CIWA protocol - Multivitamin/Thiamine - cessation counseling Microcytic anemia - s/p FFP and Vit K 10/31, no need FFP 11/03 pre-paracentesis; INR at 2 - no acute bleeding at this time - Vitamin B12 Hx of HTN - pt not hypertensive at this time - s/p paracentesis 11/01: 8.5 L removed, pending paracentesis 11/04 - continue to monitor Hx of DM - HbA1c 5.4 - Patient does not take home meds - Accuchecks PPX DVT: no SCDS due to B/L LE pitting edema, chemical DVT ppx CI due to high PT GI: Protonix 40mg IVP daily HHD case d/w Dr. Mickey Segundo Law PGY1 <Tacho Arevalo - Last Filed: 11/05/18 21:09> Objective - Vital Signs/Intake and Output Vital Signs (last 24 hours): Temp Pulse Resp BP Pulse Ox 98.2 F 100 H 20 134/78 97 11/05/18 16:00 11/05/18 16:00 11/05/18 16:00 11/05/18 16:00 11/05/18 16:00 Intake and Output: 11/05/18 11/06/18 18:59 06:59 Intake Total 480 Balance 480 - Labs Labs: 11/04/18 07:29 11/04/18 07:29 PT 21.9 SECONDS (9.7-12.2) H 11/03/18 14:10 INR 2.0 11/03/18 14:10 APTT 35 SECONDS (21-34) H 10/31/18 12:05 Attending/Attestation - Attestation I have personally seen and examined this patient.: Yes I have fully participated in the care of the patient.: Yes I have reviewed all pertinent clinical information, including history, physical exam and plan: Yes Notes (Text): seen and examined,plan discussed ready for discharge
[2018-11-04 07:40] LABS: HEMOGLOBIN 8.2 g/dL (12.0-18.0); MEAN CELL VOLUME 68.1 fL (80.0-94.0); MEAN CORPUSCULAR HEMOGLOBIN 21.1 pg (27.0-31.0); MEAN CORPUSCULAR HGB CONC 30.9 g/dL (33.0-37.0); MEAN PLATELET VOLUME 8.5 fL (7.2-11.7); PLATELET COUNT 156 K/uL (130-400); RBC 3.89 Mil/uL (4.40-5.90); WHITE BLOOD COUNT 3.3 K/uL (4.8-10.8)
[2018-11-04 07:48] LABS: ALB/GLOB RATIO 0.8 (1.0-2.1); ALT/SGPT 29 U/L (21-72); AST/SGOT 37 U/L (17-59); BLOOD UREA NITROGEN 10 mg/dL (9-20); CALCIUM 8.3 mg/dl (8.6-10.4); GFR NON-AFRICAN AMERICAN > 60
[2018-11-04] MEDS: guaiFENesin 100 mg/5 ml Syrup UD PO PRN (08:08)
[2018-11-04] MEDS: Multiple Vitamins Oral Solution PO SCH (09:31)
[2018-11-04] MEDS: Pantoprazole 40 mg EC Tab PO SCH (09:31)
[2018-11-04 09:54] LABS: NEUT # 2.7 K/uL (1.8-7.0)
[2018-11-04 09:55] LABS: EOS # 0.1 K/uL (0.0-0.7); LYMPH # 0.3 K/uL (1.0-4.3); MONO # 0.3 K/uL (0.0-0.8)
[2018-11-04 09:56] LABS: EOSINOPHIL 2 % (0-4); LYMPHOCYTE 8 % (20-40); MONOCYTE 10 % (0-10); NEUTROPHIL 80 % (50-75); TOTAL CELLS COUNTED 100
[2018-11-04 09:57] LABS: ANISOCYTOSIS SLIGHT; HYPOCHROMIC SLIGHT; PLATELET ESTIMATE NORMAL (NORMAL); POIKILOCYTOSIS SLIGHT; TARGET CELLS SLIGHT
[2018-11-04 09:58] LABS: BURR CELLS SLIGHT; LARGE PLATELETS PRESENT; OVALOCYTES SLIGHT
--- NOTE | 2018-11-04 11:12 | CP.PCM.CON ---
History of Present Illness - History of Present Illness History of Present Illness: The pt is a 63 year old man, alcoholic, wit cirrhosis and ascites. He has had recent paracentesis. Pt had an echo and a RV mass was reported by Dr Veras. pt never smoked, has no known CAD. CXR reports mild congestion. CT of abdomen reports right effusion, pleural Pt is uncomfortable due to tense ascites Review of Systems - Review of Systems All systems: reviewed and no additional remarkable complaints except (as above) Past Patient History - Infectious Disease Hx of Infectious Diseases: None - Past Medical History & Family History Past Medical History?: Yes - Past Social History Smoking Status: Never Smoked - CARDIAC Hx Cardiac Disorders: No - PULMONARY Hx Respiratory Disorders: Yes (ABN X RAY) - NEUROLOGICAL Hx Neurological Disorder: No - HEENT Hx Blind: Yes (RIGHT EYE) - RENAL Hx Chronic Kidney Disease: No - ENDOCRINE/METABOLIC Hx Diabetes Mellitus Type 2: Yes - HEMATOLOGICAL/ONCOLOGICAL Hx Anemia: Yes - INTEGUMENTARY Hx Dermatological Problems: No - MUSCULOSKELETAL/RHEUMATOLOGICAL Hx Musculoskeletal Disorders: No - GASTROINTESTINAL Hx Gastrointestinal Disorders: Yes (HX ASCITES) - GENITOURINARY/GYNECOLOGICAL Hx Genitourinary Disorders: No - PSYCHIATRIC Hx Substance Use: No - SURGICAL HISTORY Other/Comment: left arm / surgery - ANESTHESIA Hx Anesthesia: Yes Hx Anesthesia Reactions: No Hx Malignant Hyperthermia: No Meds Home Medications: Home Medication List Medication Instructions Recorded Confirmed Type Furosemide [Lasix] 40 mg PO DAILY #30 tab 11/03/18 Rx Multivitamin [Multi-Delyn Liquid] 5 ml PO DAILY #30 syr 11/03/18 Rx Pantoprazole [Protonix EC Tab] 40 mg PO DAILY #30 ect 11/03/18 Rx Spironolactone [Aldactone] 50 mg PO DAILY #30 tab 11/03/18 Rx Thiamine [Vitamin B1 Tab] 100 mg PO DAILY #30 tab 11/03/18 Rx Allergies/Adverse Reactions: Allergies Allergy/AdvReac Type Severity Reaction Status Date / Time Penicillins Allergy Verified 10/30/18 20:40 - Medications Medications: Current Medications Acetaminophen (Tylenol 325mg Tab) 650 mg PO Q6 PRN PRN Reason: fever+pain Last Admin: 11/03/18 22:46 Dose: 650 mg Furosemide (Lasix) 40 mg PO DAILY [facility] Last Admin: 11/04/18 09:31 Dose: 40 mg Guaifenesin (Robitussin) 100 mg PO Q4H PRN PRN Reason: Cough Last Admin: 11/04/18 08:08 Dose: 100 mg Multivitamins/Vitamin C (Multi-Delyn Liquid) 5 ml PO DAILY [facility] Last Admin: 11/04/18 09:31 Dose: 5 ml Pantoprazole Sodium (Protonix Ec Tab) 40 mg PO DAILY [facility] Last Admin: 11/04/18 09:31 Dose: 40 mg Spironolactone (Aldactone) 50 mg PO DAILY [facility] Last Admin: 11/04/18 09:31 Dose: 50 mg Thiamine HCl (Vitamin B1 Tab) 100 mg PO DAILY [facility] Last Admin: 11/04/18 09:31 Dose: 100 mg Physical Exam - Constitutional Appears: Chronically Ill - Head Exam Head Exam: ATRAUMATIC - Eye Exam Eye Exam: EOMI - ENT Exam ENT Exam: Mucous Membranes Dry, Normal Oropharynx - Neck Exam Neck exam: Positive for: Full Rom Additional comments: jvd - Respiratory Exam Respiratory Exam: Decreased Breath Sounds - Cardiovascular Exam Cardiovascular Exam: REGULAR RHYTHM - GI/Abdominal Exam GI & Abdominal Exam: Organomegaly (tense ascites) - Exam External exam: NORMAL EXTERNAL EXAM - Extremities Exam Extremities exam: Positive for: normal inspection - Back Exam Back exam: NORMAL INSPECTION - Neurological Exam Neurological exam: Alert, Oriented x3, Reflexes Normal - Psychiatric Exam Psychiatric exam: Anxious - Skin Skin Exam: Normal Color Results - Vital Signs Recent Vital Signs: Last Vital Signs Temp 98.1 F 11/04/18 07:00 Pulse 99 H 11/04/18 07:00 Resp 20 11/04/18 07:00 BP 127/77 11/04/18 09:31 Pulse Ox 96 11/04/18 07:00 - Labs Result Diagrams: 11/04/18 07:29 11/04/18 07:29 Labs: Laboratory Results - last 24 hr 10/31/18 10/31/18 11/03/18 17:09 17:09 11:26 WBC RBC Hgb Hct MCV MCH MCHC RDW Plt Count MPV Neut % (Auto) Lymph % (Auto) [place] % (Auto) Eos % (Auto) Baso % (Auto) Neut # (Auto) Lymph # (Auto) [place] # (Auto) Eos # (Auto) Baso # (Auto) Neutrophils % (Manual) Lymphocytes % (Manual) Monocytes % (Manual) Eosinophils % (Manual) Platelet Estimate Large Platelets Hypochromasia (manual) Poikilocytosis (manual Anisocytosis (manual) Target Cells Ovalocytes [place] Cells PT INR Sodium Potassium Chloride Carbon Dioxide Anion Gap BUN Creatinine Est GFR ( Amer) Est GFR (Non-Af Amer) POC Glucose (mg/dL) 131 H Random Glucose Calcium Phosphorus Magnesium Total Bilirubin AST ALT Alkaline Phosphatase Total Protein Albumin Globulin Albumin/Globulin Ratio Peritoneal Tot Protein <3.0 Peritoneal LDH 30 Peritoneal Glucose 119 Peritoneal Lipase 9.0 11/03/18 11/03/18 11/03/18 13:52 14:10 16:50 WBC RBC Hgb 8.8 L Hct 27.8 L MCV MCH MCHC RDW Plt Count MPV Neut % (Auto) Lymph % (Auto) [place] % (Auto) Eos % (Auto) Baso % (Auto) Neut # (Auto) Lymph # (Auto) [place] # (Auto) Eos # (Auto) Baso # (Auto) Neutrophils % (Manual) Lymphocytes % (Manual) Monocytes % (Manual) Eosinophils % (Manual) Platelet Estimate Large Platelets Hypochromasia (manual) Poikilocytosis (manual Anisocytosis (manual) Target Cells Ovalocytes [place] Cells PT 21.9 H INR 2.0 Sodium Potassium Chloride Carbon Dioxide Anion Gap BUN Creatinine Est GFR ( Amer) Est GFR (Non-Af Amer) POC Glucose (mg/dL) 145 H Random Glucose Calcium Phosphorus Magnesium Total Bilirubin AST ALT Alkaline Phosphatase Total Protein Albumin Globulin Albumin/Globulin Ratio Peritoneal Tot Protein Peritoneal LDH Peritoneal Glucose Peritoneal Lipase 11/03/18 11/04/18 11/04/18 21:08 06:17 07:29 WBC 3.3 L RBC 3.89 L Hgb 8.2 L Hct 26.5 L MCV 68.1 L MCH 21.1 L MCHC 30.9 L RDW 22.0 H Plt Count 156 MPV 8.5 Neut % (Auto) 80.0 H Lymph % (Auto) 8.0 L [place] % (Auto) 10.0 Eos % (Auto) 2.0 Baso % (Auto) 0.0 Neut # (Auto) 2.7 Lymph # (Auto) 0.3 L [place] # (Auto) 0.3 Eos # (Auto) 0.1 Baso # (Auto) 0.0 Neutrophils % (Manual) 80 H Lymphocytes % (Manual) 8 L Monocytes % (Manual) 10 Eosinophils % (Manual) 2 Platelet Estimate Normal Large Platelets Present Hypochromasia (manual) Slight Poikilocytosis (manual Slight Anisocytosis (manual) Slight Target Cells Slight Ovalocytes Slight [place] Cells Slight PT INR Sodium Potassium Chloride Carbon Dioxide Anion Gap BUN Creatinine Est GFR ( Amer) Est GFR (Non-Af Amer) POC Glucose (mg/dL) 147 H 131 H Random Glucose Calcium Phosphorus Magnesium Total Bilirubin AST ALT Alkaline Phosphatase Total Protein Albumin Globulin Albumin/Globulin Ratio Peritoneal Tot Protein Peritoneal LDH Peritoneal Glucose Peritoneal Lipase 11/04/18 07:29 WBC RBC Hgb Hct MCV MCH MCHC RDW Plt Count MPV Neut % (Auto) Lymph % (Auto) [place] % (Auto) Eos % (Auto) Baso % (Auto) Neut # (Auto) Lymph # (Auto) [place] # (Auto) Eos # (Auto) Baso # (Auto) Neutrophils % (Manual) Lymphocytes % (Manual) Monocytes % (Manual) Eosinophils % (Manual) Platelet Estimate Large Platelets Hypochromasia (manual) Poikilocytosis (manual Anisocytosis (manual) Target Cells Ovalocytes [place] Cells PT INR Sodium 134 Potassium 3.8 Chloride 102 Carbon Dioxide 26 Anion Gap 10 BUN 10 Creatinine 0.6 L Est GFR ( Amer) > 60 Est GFR (Non-Af Amer) > 60 POC Glucose (mg/dL) Random Glucose 131 H Calcium 8.3 L Phosphorus 2.3 L Magnesium 1.9 Total Bilirubin 2.8 H AST 37 ALT 29 Alkaline Phosphatase 131 H D Total Protein 6.8 Albumin 3.0 L Globulin 3.8 Albumin/Globulin Ratio 0.8 L Peritoneal Tot Protein Peritoneal LDH Peritoneal Glucose Peritoneal Lipase Assessment & Plan - Assessment and Plan (Free Text) Assessment: 1. I personally reviewed the echo. Pt does not have an RV mass. He has a pleural effusion compressing the RV and RA. Also seen in the subcostal view is ascites and pleural effusion with fibrinous material within. LV EF is mildly reduced, , but cxr is not likely chf, as vessels are crowded in the film from poor inspiration and compression of the thorax by ascites. the pleural effusion is also not likely of cardiac etiology. Thank you for this consultation. Will sign off, please call if needed.
--- NOTE | 2018-11-04 11:43 | PCM.SURG1 ---
Surgeon's Initial Post Op Note - Surgeon's Notes Surgeon: Donny Escamilla MD Soccer Coach: NONE Type of Anesthesia: Local Pre-Operative Diagnosis: Ascites Operative Findings: US showed large amount of ascites Post-Operative Diagnosis: Ascites Operation Performed: US guided paracentesis Specimen/Specimens Removed: 6.5 liters of straw colored fluid Estimated Blood Loss: EBL {In ML}: 0 Blood Products Given: N/A Drains Used: No Drains Post-Op Condition: Fair Date of Surgery/Procedure: 11/04/18 Time of Surgery/Procedure: 11:40
[2018-11-04] MEDS: Albumin Human 25% (12.5 gm/50 ml) IV ONE ×2 (13:43→17:43)
--- NOTE | 2018-11-04 15:10 | US ---
Date of Procedure: 11/04/2018 PROCEDURE: Ultrasound-guided paracentesis, CPT 73652 Medications: 7 cc 1% Lidocaine HISTORY: Ascites, abdominal pain, cirrhosis TECHNIQUE: Following informed consent , the patient was placed supine on the stretcher and the site was marked. A limited abdominal ultrasound was performed that showed a large amount of intra-abdominal fluid. Procedural time out was called and the Pt's abdomen was marked and prepped and draped in the usual sterile fashion. Ultrasound-guided large volume paracentesis performed. A total of 6.5 liters of straw colored fluid was removed without complication. IMPRESSION: Ultrasound-guided large volume paracentesis.
[2018-11-04] MEDS ORDERED: Albumin Human 5% (12.5 gm/250 ml) IV ONE (15:30)
--- NOTE | 2018-11-04 17:04 | CP.PCM.DIS ---
<Ratna Hwang - Last Filed: 11/04/18 17:04> Provider - Provider Date of Admission: 10/30/18 23:58 Attending physician: Zachary Bergman MD Consults: 10/31/18 02:34 Gastroenterology Consult Routine Comment: Consulting Provider: Lamont Chandler Consulting Physician: Lamont Chandler Reason for Consult: microcytic anemia, cirrhosis 11/04/18 07:15 Cardiology Consult Routine Comment: Consulting Provider: Mynor Sarabia Consulting Physician: Mynor Sarabia Reason for Consult: Possible JOHNSON - ECHO significant for RA and RV masses Time Spent in preparation of Discharge (in minutes): 45 Hospital Course - Lab Results Lab Results: Micro Results 10/31/18 17:09 Ascitic Fluid Gram Stain - Final 10/31/18 17:09 Ascitic Fluid Body Fluid Culture - Final No growth. Most Recent Lab Values WBC 3.3 K/uL (4.8-10.8) L 11/04/18 07:29 RBC 3.89 Mil/uL (4.40-5.90) L 11/04/18 07:29 Hgb 8.2 g/dL (12.0-18.0) L 11/04/18 07:29 Hct 26.5 % (35.0-51.0) L 11/04/18 07:29 MCV 68.1 fL (80.0-94.0) L 11/04/18 07:29 MCH 21.1 pg (27.0-31.0) L 11/04/18 07:29 MCHC 30.9 g/dL (33.0-37.0) L 11/04/18 07:29 RDW 22.0 % (11.5-14.5) H 11/04/18 07:29 Plt Count 156 K/uL (130-400) 11/04/18 07:29 MPV 8.5 fL (7.2-11.7) 11/04/18 07:29 Neut % (Auto) 80.0 % (50.0-75.0) H 11/04/18 07:29 Lymph % (Auto) 8.0 % (20.0-40.0) L 11/04/18 07:29 [place] % (Auto) 10.0 % (0.0-10.0) 11/04/18 07:29 Eos % (Auto) 2.0 % (0.0-4.0) 11/04/18 07:29 Baso % (Auto) 0.0 % (0.0-2.0) 11/04/18 07:29 Neut # (Auto) 2.7 K/uL (1.8-7.0) 11/04/18 07:29 Lymph # (Auto) 0.3 K/uL (1.0-4.3) L 11/04/18 07:29 [place] # (Auto) 0.3 K/uL (0.0-0.8) 11/04/18 07:29 Eos # (Auto) 0.1 K/uL (0.0-0.7) 11/04/18 07:29 Baso # (Auto) 0.0 K/uL (0.0-0.2) 11/04/18 07:29 Neutrophils % (Manual) 80 % (50-75) H 11/04/18 07:29 Lymphocytes % (Manual) 8 % (20-40) L 11/04/18 07:29 Monocytes % (Manual) 10 % (0-10) 11/04/18 07:29 Eosinophils % (Manual) 2 % (0-4) 11/04/18 07:29 Differential Comment 11/01/18 07:02 Platelet Estimate Normal (NORMAL) 11/04/18 07:29 Large Platelets Present 11/04/18 07:29 Hypochromasia (manual) Slight 11/04/18 07:29 Poikilocytosis (manual Slight 11/04/18 07:29 Anisocytosis (manual) Slight 11/04/18 07:29 Target Cells Slight 11/04/18 07:29 Ovalocytes Slight 11/04/18 07:29 [place] Cells Slight 11/04/18 07:29 PT 21.9 SECONDS (9.7-12.2) H 11/03/18 14:10 INR 2.0 11/03/18 14:10 APTT 35 SECONDS (21-34) H 10/31/18 12:05 Sodium 134 mmol/L (132-148) 11/04/18 07:29 Potassium 3.8 mmol/L (3.6-5.2) 11/04/18 07:29 Chloride 102 mmol/L (98-107) 11/04/18 07:29 Carbon Dioxide 26 mmol/L (22-30) 11/04/18 07:29 Anion Gap 10 (10-20) 11/04/18 07:29 BUN 10 mg/dL (9-20) 11/04/18 07:29 Creatinine 0.6 mg/dL (0.8-1.5) L 11/04/18 07:29 Est GFR ( Amer) > 60 11/04/18 07:29 Est GFR (Non-Af Amer) > 60 11/04/18 07:29 POC Glucose (mg/dL) 132 mg/dL (65-110) H 11/04/18 12:20 Random Glucose 131 mg/dL (75-110) H 11/04/18 07:29 Hemoglobin A1c 5.4 % (4.2-6.5) 10/31/18 06:44 Calcium 8.3 mg/dl (8.6-10.4) L 11/04/18 07:29 Phosphorus 2.3 mg/dL (2.5-4.5) L 11/04/18 07:29 Magnesium 1.9 mg/dL (1.6-2.3) 11/04/18 07:29 Iron 19 ug/dL (49-181) L 10/31/18 06:44 TIBC 381 ug/dL (250-450) 10/31/18 06:44 % Saturation 5 (20-55) L 10/31/18 06:44 Total Bilirubin 2.8 mg/dL (0.2-1.3) H 11/04/18 07:29 AST 37 U/L (17-59) 11/04/18 07:29 ALT 29 U/L (21-72) 11/04/18 07:29 Alkaline Phosphatase 131 U/L (38-126) H D 11/04/18 07:29 Ammonia 99 umol/L (9-33) H D 11/01/18 10:48 NT-Pro-B Natriuret Pep 74.3 pg/mL (0-900) 10/30/18 22:08 Total Protein 6.8 g/dL (6.3-8.3) 11/04/18 07:29 Albumin 3.0 g/dL (3.5-5.0) L 11/04/18 07:29 Globulin 3.8 gm/dL (2.2-3.9) 11/04/18 07:29 Albumin/Globulin Ratio 0.8 (1.0-2.1) L 11/04/18 07:29 Lipase 77 U/L (23-300) 10/31/18 16:32 Vitamin B12 962 pg/mL (239-931) H 10/31/18 06:44 Folate 10.8 ng/mL 10/31/18 06:44 Urine Color Gladys (YELLOW) 10/31/18 02:06 Urine Clarity Clear (Clear) 10/31/18 02:06 Urine pH 6.0 (5.0-8.0) 10/31/18 02:06 Ur Specific G[place] > 1.060 (1.003-1.030) H 10/31/18 02:06 Urine Protein Negative mg/dL (NEGATIVE) 10/31/18 02:06 Urine Glucose (UA) Normal mg/dL (Normal) 10/31/18 02:06 Urine Ketones Trace mg/dL (NEGATIVE) 10/31/18 02:06 Urine Blood Negative (NEGATIVE) 10/31/18 02:06 Urine Nitrate Negative (NEGATIVE) 10/31/18 02:06 Urine Bilirubin Negative (NEGATIVE) 10/31/18 02:06 Urine Urobilinogen 4.0 mg/dL (0.2-1.0) 10/31/18 02:06 Ur Leukocyte Esterase Neg Robert/uL (Negative) 10/31/18 02:06 Urine WBC (Auto) 1 /hpf (0-5) 10/31/18 02:06 Urine RBC (Auto) 1 /hpf (0-3) 10/31/18 02:06 Ur Squamous Epith Cells < 1 /hpf (0-5) 10/31/18 02:06 Urine Bacteria Rare (<OCC) 10/31/18 02:06 Fluid Source Peritoneal/ascites 10/31/18 17:09 Fluid Appearance Clear (CLEAR) 10/31/18 17:09 Fluid WBC 10.0 /mm3 (0.0-300.0) 10/31/18 17:09 Fluid RBC 90.0 /mm3 (0.0-0.0) H 10/31/18 17:09 Fluid Tot Cell Count TEST NOT PERFORMED 10/31/18 17:09 Fluid Neutrophils 10.0 % (0-0) H 10/31/18 17:09 Fluid Lymphocytes 78.0 % (0-0) H 10/31/18 17:09 Fld Monocyte/Macrophag 12 % (0-0) H 10/31/18 17:09 Fluid Comment 10/31/18 17:09 Peritoneal Tot Protein <3.0 g/dL 10/31/18 17:09 Peritoneal LDH 30 U/L (<63) 10/31/18 17:09 Peritoneal Glucose 119 mg/dL 10/31/18 17:09 Peritoneal Lipase 9.0 U/L (<10) 10/31/18 17:09 Stool Occult Blood Negative (NEGATIVE) 11/02/18 20:45 Alcohol, Quantitative < 10 mg/dl (0-10) 10/31/18 00:14 RPR Nonreactive (NONREACTIVE) 11/01/18 10:48 Hepatitis A IgM Ab Negative (NEGATIVE) 11/01/18 10:48 Hep Bs Antigen Negative (NEGATIVE) 11/01/18 10:48 Hep B Core IgM Ab Negative (NEGATIVE) 11/01/18 10:48 Hepatitis C Antibody Negative (NEGATIVE) 11/01/18 10:48 HIV 1&2 Antibody Screen Negative (NEGATIVE) 11/01/18 10:48 Blood Type A POSITIVE 11/02/18 14:14 Antibody Screen Negative 11/02/18 14:14 - Hospital Course Hospital Course: On admission: Patient is a 63 year old male with pmhx of DMII and HTN that came to the ER for increased abdominal swelling and pain. Patient state he noted his abdomen to get distended about a month ago, starting on the left lower quadrant and then, the swelling increasing in right upper quadrant area of abdomen. Patient admits to drinking 6 packs of beer every day for the past 20 years, and states he believes alcohol is what is causing his abdomen to be distended. Patient admits to having bilateral leg swelling that started a couple of months ago, and states he first saw his lower extremity swell before seeing his abdomen get distended. Admits to shortness of breath when walking as well as pain in LE. denies fever, chills, chest pain, shortness of breath, n/v/d/c or urinary symptoms. On discharge: Patient admitted 10/31 and discharged 11/04. Patient was admitted and treated for ascites secondary to alcoholic cirrhosis. Medications were given to relieve his ascites and paracentesis also done twice, 11/01 and 11/04, to remove fluid out of his ascitic abdomen. Patient also had an abnormal ECHO reading (mass in right side of heart) that was followed up by cardiology, who signed off since the second cattle sorter who read the ECHO said there were no masses. After patient had second paracentesis and repleted albumin, patient cleared by medicine team to be discharged. While hospitalized, patient's family stated that patient just applied for insurance. He is unable to go to subacute rehab without insurance. So patient will have to stay at home until insurance is confirmed. Rehab is recommended due to patient's physical deconditioning. *see progress note for today for physical exam* Patient instructions: 1) [facility] appointment Nov 27 at 9am at [facility]. [phone] 2) Stop drinking alcohol. It is bad for your liver! 3) Home medications we prescribed for 30 day supply: furosemide 40 mg by mouth daily multivitamin 5 ml oral daily spironolactone 50 mg by mouth daily thiamine 100 mg by mouth daily 4) Wait for your insurance to come before you are able to go to subacute rehab facility. 5) return to ED if worsening abdominal pain, nausea, vomiting, tremors. above is only a summary of hospital events. see full medical record for more details. Discharge Exam - Head Exam Head Exam: ATRAUMATIC Discharge Plan - Discharge Medications Prescriptions: RX: Furosemide [Lasix] 40 mg PO DAILY #30 tab RX: Multivitamin [Multi-Delyn Liquid] 5 ml PO DAILY #30 syr RX: Pantoprazole [Protonix EC Tab] 40 mg PO DAILY #30 ect RX: Spironolactone [Aldactone] 50 mg PO DAILY #30 tab RX: Thiamine [Vitamin B1 Tab] 100 mg PO DAILY #30 tab - Follow Up Plan Condition: GUARDED Disposition: HOME/ ROUTINE Instructions: Heart Healthy Diet, Alcohol Abuse and Alcoholism (DC), Fluid in the Belly (Ascites) (DC), Furosemide, Pantoprazole, Spironolactone, Abdominal Paracentesis (DC), Effects of Alcohol on Your Health Additional Instructions: 1) [facility] appointment Nov 27 at 9am at [facility]. [phone] 2) Stop drinking alcohol. It is bad for your liver! 3) Home medications we prescribed for 30 day supply: furosemide 40 mg by mouth daily multivitamin 5 ml oral daily spironolactone 50 mg by mouth daily thiamine 100 mg by mouth daily 4) Wait for your insurance to come before you are able to go to subacute rehab facility. 5) return to ED if worsening abdominal pain, nausea, vomiting, tremors. Referrals: [facility] at [facility] [Outside] - 11/27/18 9:00 am <Tacho Arevalo - Last Filed: 11/05/18 21:09> Provider - Provider Date of Admission: 10/30/18 23:58 Attending physician: Zachary Bergman MD Consults: 10/31/18 02:34 Gastroenterology Consult Routine Comment: Consulting Provider: Lamont Chandler Consulting Physician: Lamont Chandler Reason for Consult: microcytic anemia, cirrhosis 11/04/18 07:15 Cardiology Consult Routine Comment: Consulting Provider: Mynor Sarabia Consulting Physician: Mynor Sarabia Reason for Consult: Possible JOHNSON - ECHO significant for RA and RV masses Hospital Course - Lab Results Lab Results: Micro Results 10/31/18 17:09 Ascitic Fluid Gram Stain - Final 10/31/18 17:09 Ascitic Fluid Body Fluid Culture - Final No growth. Most Recent Lab Values WBC 3.3 K/uL (4.8-10.8) L 11/04/18 07:29 RBC 3.89 Mil/uL (4.40-5.90) L 11/04/18 07:29 Hgb 8.2 g/dL (12.0-18.0) L 11/04/18 07:29 Hct 26.5 % (35.0-51.0) L 11/04/18 07:29 MCV 68.1 fL (80.0-94.0) L 11/04/18 07:29 MCH 21.1 pg (27.0-31.0) L 11/04/18 07:29 MCHC 30.9 g/dL (33.0-37.0) L 11/04/18 07:29 RDW 22.0 % (11.5-14.5) H 11/04/18 07:29 Plt Count 156 K/uL (130-400) 11/04/18 07:29 MPV 8.5 fL (7.2-11.7) 11/04/18 07:29 Neut % (Auto) 80.0 % (50.0-75.0) H 11/04/18 07:29 Lymph % (Auto) 8.0 % (20.0-40.0) L 11/04/18 07:29 [place] % (Auto) 10.0 % (0.0-10.0) 11/04/18 07:29 Eos % (Auto) 2.0 % (0.0-4.0) 11/04/18 07:29 Baso % (Auto) 0.0 % (0.0-2.0) 11/04/18 07:29 Neut # (Auto) 2.7 K/uL (1.8-7.0) 11/04/18 07:29 Lymph # (Auto) 0.3 K/uL (1.0-4.3) L 11/04/18 07:29 [place] # (Auto) 0.3 K/uL (0.0-0.8) 11/04/18 07:29 Eos # (Auto) 0.1 K/uL (0.0-0.7) 11/04/18 07:29 Baso # (Auto) 0.0 K/uL (0.0-0.2) 11/04/18 07:29 Neutrophils % (Manual) 80 % (50-75) H 11/04/18 07:29 Lymphocytes % (Manual) 8 % (20-40) L 11/04/18 07:29 Monocytes % (Manual) 10 % (0-10) 11/04/18 07:29 Eosinophils % (Manual) 2 % (0-4) 11/04/18 07:29 Differential Comment 11/01/18 07:02 Platelet Estimate Normal (NORMAL) 11/04/18 07:29 Large Platelets Present 11/04/18 07:29 Hypochromasia (manual) Slight 11/04/18 07:29 Poikilocytosis (manual Slight 11/04/18 07:29 Anisocytosis (manual) Slight 11/04/18 07:29 Target Cells Slight 11/04/18 07:29 Ovalocytes Slight 11/04/18 07:29 [place] Cells Slight 11/04/18 07:29 PT 21.9 SECONDS (9.7-12.2) H 11/03/18 14:10 INR 2.0 11/03/18 14:10 APTT 35 SECONDS (21-34) H 10/31/18 12:05 Sodium 134 mmol/L (132-148) 11/04/18 07:29 Potassium 3.8 mmol/L (3.6-5.2) 11/04/18 07:29 Chloride 102 mmol/L (98-107) 11/04/18 07:29 Carbon Dioxide 26 mmol/L (22-30) 11/04/18 07:29 Anion Gap 10 (10-20) 11/04/18 07:29 BUN 10 mg/dL (9-20) 11/04/18 07:29 Creatinine 0.6 mg/dL (0.8-1.5) L 11/04/18 07:29 Est GFR ( Amer) > 60 11/04/18 07:29 Est GFR (Non-Af Amer) > 60 11/04/18 07:29 POC Glucose (mg/dL) 154 mg/dL (65-110) H 11/05/18 16:51 Random Glucose 131 mg/dL (75-110) H 11/04/18 07:29 Hemoglobin A1c 5.4 % (4.2-6.5) 10/31/18 06:44 Calcium 8.3 mg/dl (8.6-10.4) L 11/04/18 07:29 Phosphorus 2.3 mg/dL (2.5-4.5) L 11/04/18 07:29 Magnesium 1.9 mg/dL (1.6-2.3) 11/04/18 07:29 Iron 19 ug/dL (49-181) L 10/31/18 06:44 TIBC 381 ug/dL (250-450) 10/31/18 06:44 % Saturation 5 (20-55) L 10/31/18 06:44 Total Bilirubin 2.8 mg/dL (0.2-1.3) H 11/04/18 07:29 AST 37 U/L (17-59) 11/04/18 07:29 ALT 29 U/L (21-72) 11/04/18 07:29 Alkaline Phosphatase 131 U/L (38-126) H D 11/04/18 07:29 Ammonia 99 umol/L (9-33) H D 11/01/18 10:48 NT-Pro-B Natriuret Pep 74.3 pg/mL (0-900) 10/30/18 22:08 Total Protein 6.8 g/dL (6.3-8.3) 11/04/18 07:29 Albumin 3.0 g/dL (3.5-5.0) L 11/04/18 07:29 Globulin 3.8 gm/dL (2.2-3.9) 11/04/18 07:29 Albumin/Globulin Ratio 0.8 (1.0-2.1) L 11/04/18 07:29 Lipase 77 U/L (23-300) 10/31/18 16:32 Vitamin B12 962 pg/mL (239-931) H 10/31/18 06:44 Folate 10.8 ng/mL 10/31/18 06:44 Urine Color Gladys (YELLOW) 10/31/18 02:06 Urine Clarity Clear (Clear) 10/31/18 02:06 Urine pH 6.0 (5.0-8.0) 10/31/18 02:06 Ur Specific [place] > 1.060 (1.003-1.030) H 10/31/18 02:06 Urine Protein Negative mg/dL (NEGATIVE) 10/31/18 02:06 Urine Glucose (UA) Normal mg/dL (Normal) 10/31/18 02:06 Urine Ketones Trace mg/dL (NEGATIVE) 10/31/18 02:06 Urine Blood Negative (NEGATIVE) 10/31/18 02:06 Urine Nitrate Negative (NEGATIVE) 10/31/18 02:06 Urine Bilirubin Negative (NEGATIVE) 10/31/18 02:06 Urine Urobilinogen 4.0 mg/dL (0.2-1.0) 10/31/18 02:06 Ur Leukocyte Esterase Neg Robert/uL (Negative) 10/31/18 02:06 Urine WBC (Auto) 1 /hpf (0-5) 10/31/18 02:06 Urine RBC (Auto) 1 /hpf (0-3) 10/31/18 02:06 Ur Squamous Epith Cells < 1 /hpf (0-5) 10/31/18 02:06 Urine Bacteria Rare (<OCC) 10/31/18 02:06 Fluid Source Peritoneal/ascites 10/31/18 17:09 Fluid Appearance Clear (CLEAR) 10/31/18 17:09 Fluid WBC 10.0 /mm3 (0.0-300.0) 10/31/18 17:09 Fluid RBC 90.0 /mm3 (0.0-0.0) H 10/31/18 17:09 Fluid Tot Cell Count TEST NOT PERFORMED 10/31/18 17:09 Fluid Neutrophils 10.0 % (0-0) H 10/31/18 17:09 Fluid Lymphocytes 78.0 % (0-0) H 10/31/18 17:09 Fld Monocyte/Macrophag 12 % (0-0) H 10/31/18 17:09 Fluid Albumin 0.6 g/dL 10/31/18 17:09 Fluid Comment 10/31/18 17:09 Peritoneal Tot Protein <3.0 g/dL 10/31/18 17:09 Peritoneal LDH 30 U/L (<63) 10/31/18 17:09 Peritoneal Glucose 119 mg/dL 10/31/18 17:09 Peritoneal Lipase 9.0 U/L (<10) 10/31/18 17:09 Stool Occult Blood Negative (NEGATIVE) 11/02/18 20:45 Alcohol, Quantitative < 10 mg/dl (0-10) 10/31/18 00:14 RPR Nonreactive (NONREACTIVE) 11/01/18 10:48 Hepatitis A IgM Ab Negative (NEGATIVE) 11/01/18 10:48 Hep Bs Antigen Negative (NEGATIVE) 11/01/18 10:48 Hep B Core IgM Ab Negative (NEGATIVE) 11/01/18 10:48 Hepatitis C Antibody Negative (NEGATIVE) 11/01/18 10:48 HIV 1&2 Antibody Screen Negative (NEGATIVE) 11/01/18 10:48 Blood Type A POSITIVE 11/02/18 14:14 Antibody Screen Negative 11/02/18 14:14 Attending/Attestation - Attestation I have personally seen and examined this patient.: Yes I have fully participated in the care of the patient.: Yes I have reviewed all pertinent clinical information, including history, physical exam and plan: Yes Notes (Text): Patient was ready for discharge on 11/04/2018. Family picked him up today 11/05/2018 11/05/18 21:08
[2018-11-05] MEDS: Pantoprazole 40 mg EC Tab PO SCH (10:20)
[2018-11-05] MEDS: Multiple Vitamins Oral Solution PO SCH (10:21)
[2018-11-05 16:13] VITALS: BP 134/78; PULSE 100; TEMP 98.2; O2SAT 97
== END 2018-11-05 19:44 | disposition home or self-care (01) | DRG 264 ==
LOC: C.ER 20:25 → C.6T 23:58
PROVIDERS: ADMIT Internal Medicine; ATTEND Internal Medicine
PROC: 30233K1 Transfusion of Nonautologous Frozen Plasma into Peripheral Vein, Percutaneous Approach (ICD-10-PCS; 2018-10-31)
PROC: 30233N1 Transfusion of Nonautologous Red Blood Cells into Peripheral Vein, Percutaneous Approach (ICD-10-PCS; 2018-11-02)
PROC: 0W9G3ZX Drainage of Peritoneal Cavity, Percutaneous Approach, Diagnostic (ICD-10-PCS; principal; 2018-11-04)
DX: K70.31 Alcoholic cirrhosis of liver with ascites (principal); D68.9 Coagulation defect, unspecified; K76.6 Portal hypertension; E11.9 Type 2 diabetes mellitus without complications; D50.0 Iron deficiency anemia secondary to blood loss (chronic); I10 Essential (primary) hypertension; K72.90 Hepatic failure, unspecified without coma; H54.61 Unqualified visual loss, right eye, normal vision left eye; I51.7 Cardiomegaly; F10.239 Alcohol dependence with withdrawal, unspecified; Y90.0 Blood alcohol level of less than 20 mg/100 ml

== ENCOUNTER 2018-11-27 09:47 | Inpatient (IN) | payer OTHER ==
[2018-11-27 10:00] VITALS: BMI 29.8
[2018-11-27] MEDS ORDERED: Pantoprazole 80 MG in Sodium Chloride 0.9% 100 ML IV STA (10:24)
--- NOTE | 2018-11-27 10:36 | C.PDOC ---
History Of Present Illness 63 y/o male pt with hx of DM, HTN, liver diseas and alcohol abuse presents to the ER c/o bright red blood per rectum and abdominal distention for several weeks. Pt reports at night he would get palpitations and SOB. Pt currently radha es chest pain, SOB, nausea, vomiting and diarrhea. Time Seen by Provider: 11/27/18 10:05 Chief Complaint (Nursing): Abdominal Pain History Per: Patient History/Exam Limitations: no limitations Onset/Duration Of Symptoms: Days Current Symptoms Are (Timing): Still Present Past Medical History Reviewed: Historical Data, Nursing Documentation, Vital Signs Vital Signs: Last Vital Signs Temp 98.6 F 11/27/18 10:00 Pulse 99 H 11/27/18 10:00 Resp 16 11/27/18 10:00 BP 113/73 11/27/18 10:00 Pulse Ox 94 L 11/27/18 10:00 - Medical History PMH: Anemia Surgical History: Endoscopy - [facility] Procedures DRAINAGE OF PERITONEAL CAVITY, PERCUTANEOUS APPROACH, DIAGN (10/30/18) EXCISION OF STOMACH, ENDO, DIAGN (06/08/16) INSPECTION OF LOWER INTESTINAL TRACT, ENDO (08/09/15) INSPECTION OF UPPER INTESTINAL TRACT, ENDO (08/09/15) INTRODUCTION OF OTHER THERAPEUTIC SUBSTANCE INTO UP GI, ENDO (06/08/16) TRANSFUSE NONAUT FROZEN PLASMA IN PERIPH VEIN, PERC (10/30/18) TRANSFUSE NONAUT RED BLOOD CELLS IN PERIPH VEIN, PERC (10/30/18) Family History: States: Unknown Family Hx - Social History Hx Alcohol Use: Yes Hx Substance Use: No - Immunization History Hx Tetanus Toxoid Vaccination: No Hx Influenza Vaccination: No Hx Pneumococcal Vaccination: No Review Of Systems Except As Marked, All Systems Reviewed And Found Negative. Constitutional: Positive for: Other (abdominal distention ) Cardiovascular: Negative for: Chest Pain Respiratory: Negative for: Shortness of Breath Gastrointestinal: Positive for: Other (bright blood per rectum). Negative for: Nausea, Vomiting, Diarrhea Physical Exam - Physical Exam Appears: Non-toxic, No Acute Distress Skin: Warm, Dry Head: Normacephalic Oral Mucosa: Moist Throat: Normal, Other (uvula midline ) Neck: Normal ROM, Supple, No Other (JVD) Chest: Symmetrical, No Deformity Cardiovascular: Rhythm Regular Respiratory: Normal Breath Sounds, No Rales, No Rhonchi, No Wheezing Gastrointestinal/Abdominal: Soft, No Tenderness, Distention, No Guarding, No Rebound, Other (small ascites) Back: No CVA Tenderness Extremity: Normal ROM (x4) Neurological/Psych: Oriented x3, Normal Speech, Normal Motor, Normal Sensation ED Course And Treatment - Laboratory Results Result Diagrams: 11/28/18 07:02 11/28/18 07:02 O2 Sat by Pulse Oximetry: 94 (RA) Pulse Ox Interpretation: Normal - Other Rad chest X-Ray: Read By Radiologist Interpretation: Accession No. : [id number]. Patient Name / ID : LEIF DENG / [id number]. Exam Date : 11/27/2018 11:14:50 ( Approved ). Study Comment : Sex / Age : M / 63Y. Creator : Laurie Cox MD. Dictator : Laurie Cox MD. Medical Technologist Prn : Rn Bariatric : Laurie Cox MD. Approver2 : Report Date : 11/27/2018 13:12:58. My Comment : . Date of service: 11/27/2018. PROCEDURE: CHEST RADIOGRAPH, 1 VIEW. HISTORY: GI Bleeding. COMPARISON: 10/30/2018. FINDINGS: LUNGS: There are low lung volumes. There is mild pulmonary venous congestion. There mild basilar atelectasis. PLEURA: No pneumothorax or pleural effusion. CARDIOVASCULAR: Mild cardiomegaly. No aortic atherosclerotic calcifications present. OSSEOUS STRUCTURES: Within normal limits for the patient's age. VISUALIZED UPPER ABDOMEN: Dense opacification of the abdomen with elevation of both diaphragms. OTHER FINDINGS: None. IMPRESSION: Low lung volumes likely related to large abdominal ascites. Mild cardiomegaly and pulmonary venous congestion. Medical Decision Making Medical Decision Making: impression: GI bleed, ascites plans: -- chem labs -- blood work -- CXR -- protonix Disposition - Disposition Disposition: HOSPITALIZED Disposition Time: 13:52 Condition: GOOD - Clinical Impression Clinical Impression: GI bleed, Ascites - Scribe Statement The provider has reviewed the documentation as recorded by the Scribe Velásquez Do Provider Attestation: All medical record entries made by the Scribe were at my direction and personally dictated by me. I have reviewed the chart and agree that the record accurately reflects my personal performance of the history, physical exam, medical decision making, and the department course for this patient. I have also personally directed, reviewed, and agree with the discharge instructions and disposition.
[2018-11-27 11:41] LABS: INR 1.7
[2018-11-27 11:43] LABS: BASO % 1.3 % (0.0-2.0); EOS # 0.1 K/uL (0.0-0.7); EOS % 4.8 % (0.0-4.0); HEMOGLOBIN 8.8 g/dL (12.0-18.0); LYMPH # 0.8 K/uL (1.0-4.3); LYMPH % 31.7 % (20.0-40.0); MEAN CORPUSCULAR HEMOGLOBIN 21.6 pg (27.0-31.0); MEAN CORPUSCULAR HGB CONC 30.7 g/dL (33.0-37.0); MEAN PLATELET VOLUME 8.6 fL (7.2-11.7); MONO # 0.4 K/uL (0.0-0.8); MONO % 14.9 % (0.0-10.0); NEUT # 1.2 K/uL (1.8-7.0); NEUT % 47.3 % (50.0-75.0); NRBC % 0.3 % (0.0-2.0); RBC 4.06 Mil/uL (4.40-5.90); RED CELL DISTRIBUTION WIDTH 26.7 % (11.5-14.5); WHITE BLOOD COUNT 2.5 K/uL (4.8-10.8)
[2018-11-27 11:46] LABS: MEAN CELL VOLUME 70.3 fL (80.0-94.0)
[2018-11-27 12:01] LABS: ALB/GLOB RATIO 0.7 (1.0-2.1); ALBUMIN 2.8 g/dL (3.5-5.0); ALT/SGPT 27 U/L (21-72); AST/SGOT 45 U/L (17-59); BLOOD UREA NITROGEN 13 mg/dL (9-20); CALCIUM 8.1 mg/dl (8.6-10.4); GFR NON-AFRICAN AMERICAN > 60
--- NOTE | 2018-11-27 13:16 | RAD ---
Date of service: 11/27/2018 PROCEDURE: CHEST RADIOGRAPH, 1 VIEW HISTORY: GI Bleeding COMPARISON: 10/30/2018. FINDINGS: LUNGS: There are low lung volumes. There is mild pulmonary venous congestion. There mild basilar atelectasis. PLEURA: No pneumothorax or pleural effusion. CARDIOVASCULAR: Mild cardiomegaly. No aortic atherosclerotic calcifications present. OSSEOUS STRUCTURES: Within normal limits for the patient's age. VISUALIZED UPPER ABDOMEN: Dense opacification of the abdomen with elevation of both diaphragms. OTHER FINDINGS: None IMPRESSION: Low lung volumes likely related to large abdominal ascites. Mild cardiomegaly and pulmonary venous congestion.
--- NOTE | 2018-11-27 14:48 | CP.PCM.HP ---
<Leticia Francis - Last Filed: 11/27/18 16:08> History of Present Illness - History of Present Illness History of Present Illness: CC: Abdominal fullness Patient is a 63 year old male with PMHx of alcohol abuse, DM2, HTN sent by the clinic for evaluation and treatment of abdominal distension and reports of 2 weeks of rectal bleed. Pt states his abdominal distension began to return 1 week after his discharge in mid October. He was subsequently treated for same complaint in late October at [facility]. Pt reports bleeding upon defecation, noting drops of bright red blood in toilet, as well as on the toilet paper when wiping. Pt denies alcohol consumption since last discharge as he is making an effort to stay sober. Pt reports SOB 2/2 abdominal distension, and difficulty urinating. Denies chest pain, nausea, diarrhea. PMD: clinic Pmhx: DM, HTN Shx: left arm surgery from trauma (2016) All: Penicillin Meds: non compliant Famhx: DM Sochx: Denies alcohol, tobacco, drugs. Lives with Mother Present on Admission - Present on Admission Any Indicators Present on Admission: No Review of Systems - Cardiovascular Cardiovascular: Leg Edema, Pedal Edema. absent: Chest Pain - Respiratory Respiratory: Dyspnea. absent: Cough - Gastrointestinal Gastrointestinal: Bloating, Early Satiety, Hematochezia. absent: Abdominal Pain, Nausea - Genitourinary Genitourinary: Difficulty Urinating, Urinary Hesitance. absent: Hematuria - Musculoskeletal Musculoskeletal: Limited Range of Motion (2/2 abdominal distension) - Integumentary Integumentary: absent: Bleeding Lesions, Unusual Bruising - Neurological Neurological: Memory Loss Past Patient History - Infectious Disease Hx of Infectious Diseases: None - Past Medical History & Family History Past Medical History?: Yes - Past Social History Smoking Status: Never Smoked - CARDIAC Hx Cardiac Disorders: No - PULMONARY Hx Respiratory Disorders: Yes (ABN X RAY) - NEUROLOGICAL Hx Neurological Disorder: No - HEENT Hx Blind: Yes (RIGHT EYE) - RENAL Hx Chronic Kidney Disease: No - ENDOCRINE/METABOLIC Hx Diabetes Mellitus Type 2: Yes - HEMATOLOGICAL/ONCOLOGICAL Hx Anemia: Yes - INTEGUMENTARY Hx Dermatological Problems: No - MUSCULOSKELETAL/RHEUMATOLOGICAL Hx Musculoskeletal Disorders: No - GASTROINTESTINAL Hx Gastrointestinal Disorders: Yes (HX ASCITES) - GENITOURINARY/GYNECOLOGICAL Hx Genitourinary Disorders: No - PSYCHIATRIC Hx Substance Use: No - SURGICAL HISTORY Other/Comment: left arm / surgery - ANESTHESIA Hx Anesthesia: Yes Hx Anesthesia Reactions: No Hx Malignant Hyperthermia: No Meds Allergies/Adverse Reactions: Allergies Allergy/AdvReac Type Severity Reaction Status Date / Time Penicillins Allergy Verified 11/27/18 09:59 Physical Exam - Constitutional Appears: Non-toxic, No Acute Distress - Head Exam Head Exam: ATRAUMATIC, NORMAL INSPECTION, NORMOCEPHALIC - Eye Exam Eye Exam: EOMI, Normal appearance Pupil Exam: NORMAL ACCOMODATION - ENT Exam ENT Exam: Mucous Membranes Moist, Normal Exam Additional comments: poor dentition - Neck Exam Neck exam: Positive for: Normal Inspection - Respiratory Exam Respiratory Exam: Rales (L>R), NORMAL BREATHING PATTERN. absent: Wheezes, Respiratory Distress - Cardiovascular Exam Cardiovascular Exam: Tachycardia, REGULAR RHYTHM - GI/Abdominal Exam GI & Abdominal Exam: Distended Additional comments: Tense, grossly distended ascitic abdomen - Extremities Exam Extremities exam: Positive for: pedal edema (2+). Negative for: calf tenderness - Neurological Exam Neurological exam: Alert, Oriented x3 - Psychiatric Exam Psychiatric exam: Normal Affect, Normal Mood - Skin Skin Exam: Dry, Intact, Normal Color, Warm Results - Vital Signs Recent Vital Signs: Last Vital Signs Temp 97.8 F 11/27/18 12:55 Pulse 107 H 11/27/18 12:55 Resp 21 11/27/18 12:55 BP 125/86 11/27/18 12:55 Pulse Ox 94 L 11/27/18 14:18 - Labs Result Diagrams: 11/27/18 11:15 11/27/18 11:15 Labs: Laboratory Results - last 24 hr 11/27/18 11/27/18 11/27/18 11:15 11:15 11:15 WBC 2.5 L RBC 4.06 L Hgb 8.8 L Hct 28.6 L MCV 70.3 L D MCH 21.6 L MCHC 30.7 L RDW 26.7 H Plt Count 155 MPV 8.6 Neut % (Auto) 47.3 L Lymph % (Auto) 31.7 [place] % (Auto) 14.9 H Eos % (Auto) 4.8 H Baso % (Auto) 1.3 Neut # (Auto) 1.2 L Lymph # (Auto) 0.8 L [place] # (Auto) 0.4 Eos # (Auto) 0.1 Baso # (Auto) 0.0 PT 19.0 H INR 1.7 APTT 37 H Sodium 137 Potassium 4.1 Chloride 105 Carbon Dioxide 25 Anion Gap 10 BUN 13 Creatinine 0.4 L Est GFR ( Amer) > 60 Est GFR (Non-Af Amer) > 60 Random Glucose 160 H D Calcium 8.1 L Total Bilirubin 2.3 H AST 45 ALT 27 Alkaline Phosphatase 155 H Troponin I < 0.0120 Total Protein 7.0 Albumin 2.8 L Globulin 4.1 H Albumin/Globulin Ratio 0.7 L Stool Occult Blood Blood Type Antibody Screen 11/27/18 11/27/18 11:15 13:52 WBC RBC Hgb Hct MCV MCH MCHC RDW Plt Count MPV Neut % (Auto) Lymph % (Auto) [place] % (Auto) Eos % (Auto) Baso % (Auto) Neut # (Auto) Lymph # (Auto) [place] # (Auto) Eos # (Auto) Baso # (Auto) PT INR APTT Sodium Potassium Chloride Carbon Dioxide Anion Gap BUN Creatinine Est GFR ( Amer) Est GFR (Non-Af Amer) Random Glucose Calcium Total Bilirubin AST ALT Alkaline Phosphatase Troponin I Total Protein Albumin Globulin Albumin/Globulin Ratio Stool Occult Blood Positive H Blood Type A POSITIVE Antibody Screen Negative Assessment & Plan - Assessment and Plan (Free Text) Assessment: 63 year old male with pmhx of alcohol abuse, DM2, HTN, admitted for evaluation of GI bleed and symptomatic treatment of abdominal ascites Plan: Abdominal Ascites, 2/2 hepatic -INR 1.7; FFP x1, Vit K 10sc x1 -albumin 2.8; albumin 12.5mg 25% before and after paracentesis -paracentesis tomorrow pending coags - GI Bleed -FOBT + -hbg 8.8 on admission, stable based on previous admission -continue to monitor, transfuse PRN DM2 -accuchecks ACHS -ISS, low -hypoglycemia protocol HTN -WNL on admission, -continue to monitor Ppx: VTE: SCDs, AC contraindicated GI: PTX 40mg IV QD Dispo: Paracentesis tmrw, likely d/c after if vitals stable Discussed with Dr. Isaac -Leticia Francis, PGY-1 <Juanjose Isaac - Last Filed: 11/27/18 16:32> Results - Vital Signs Recent Vital Signs: Last Vital Signs Temp 97.9 F 11/27/18 15:52 Pulse 102 H 11/27/18 15:52 Resp 20 11/27/18 15:52 BP 115/83 11/27/18 15:52 Pulse Ox 93 L 11/27/18 15:52 - Labs Result Diagrams: 11/27/18 11:15 11/27/18 11:15 Labs: Laboratory Results - last 24 hr 11/27/18 11/27/18 11/27/18 11:15 11:15 11:15 WBC 2.5 L RBC 4.06 L Hgb 8.8 L Hct 28.6 L MCV 70.3 L D MCH 21.6 L MCHC 30.7 L RDW 26.7 H Plt Count 155 MPV 8.6 Neut % (Auto) 47.3 L Lymph % (Auto) 31.7 [place] % (Auto) 14.9 H Eos % (Auto) 4.8 H Baso % (Auto) 1.3 Neut # (Auto) 1.2 L Lymph # (Auto) 0.8 L [place] # (Auto) 0.4 Eos # (Auto) 0.1 Baso # (Auto) 0.0 PT 19.0 H INR 1.7 APTT 37 H Sodium 137 Potassium 4.1 Chloride 105 Carbon Dioxide 25 Anion Gap 10 BUN 13 Creatinine 0.4 L Est GFR ( Amer) > 60 Est GFR (Non-Af Amer) > 60 Random Glucose 160 H D Calcium 8.1 L Total Bilirubin 2.3 H AST 45 ALT 27 Alkaline Phosphatase 155 H Troponin I < 0.0120 Total Protein 7.0 Albumin 2.8 L Globulin 4.1 H Albumin/Globulin Ratio 0.7 L Stool Occult Blood Blood Type Antibody Screen 11/27/18 11/27/18 11:15 13:52 WBC RBC Hgb Hct MCV MCH MCHC RDW Plt Count MPV Neut % (Auto) Lymph % (Auto) [place] % (Auto) Eos % (Auto) Baso % (Auto) Neut # (Auto) Lymph # (Auto) [place] # (Auto) Eos # (Auto) Baso # (Auto) PT INR APTT Sodium Potassium Chloride Carbon Dioxide Anion Gap BUN Creatinine Est GFR ( Amer) Est GFR (Non-Af Amer) Random Glucose Calcium Total Bilirubin AST ALT Alkaline Phosphatase Troponin I Total Protein Albumin Globulin Albumin/Globulin Ratio Stool Occult Blood Positive H Blood Type A POSITIVE Antibody Screen Negative Attending/Attestation - Attestation I have personally seen and examined this patient.: Yes I have fully participated in the care of the patient.: Yes I have reviewed all pertinent clinical information: Yes Notes (Text): 11/27/18 16:27 Medical attending: Patient was seen and examined by me, agree with the above note by resident and agree with the able The patient was not in any acute distress when we came and saw him in the ER He has not been very compliant with medication stating he took medication for just one day and stopped, he then went to several other facilities and it is not clear to us if he was taking medications from those hospitals He has ascities. Tommorow we will see if we can do paracentesis at bedside with the help of ultrasound. The plateletcount is 144 and INR 1.7 - tonight FFP and Vitamin K and Albumin IV Juanjose Isaac
[2018-11-27] MEDS ORDERED: Glucagon Recombinant 1 mg Inj IM PRN (15:27)
[2018-11-27] MEDS ORDERED: Dextrose 50% SYRINGE Inj (50 ml) IV PRN (15:27)
[2018-11-27 15:53] VITALS: RESP 20
[2018-11-27] MEDS ORDERED: Albumin Human 25% (12.5 gm/50 ml) IV ONE (16:00)
[2018-11-27] MEDS ORDERED: Phytonadione 10 mg/ml Inj (Adult) SC ONE ×2 (16:00→17:15)
[2018-11-27] MEDS: (Novolin R) Insulin Human Regular 100 units/ml vial SC SCH ×2 (17:25→22:22)
[2018-11-28 07:20] LABS: INR 1.7
[2018-11-28 07:21] LABS: BASO % 1.1 % (0.0-2.0); EOS # 0.1 K/uL (0.0-0.7); EOS % 6.4 % (0.0-4.0); HEMOGLOBIN 7.6 g/dL (12.0-18.0); LYMPH # 0.7 K/uL (1.0-4.3); MEAN CELL VOLUME 70.1 fL (80.0-94.0); MEAN CORPUSCULAR HEMOGLOBIN 22.4 pg (27.0-31.0); MEAN PLATELET VOLUME 8.6 fL (7.2-11.7); MONO # 0.4 K/uL (0.0-0.8); MONO % 17.6 % (0.0-10.0); NEUT # 0.9 K/uL (1.8-7.0); NEUT % 41.9 % (50.0-75.0); NRBC % 0.2 % (0.0-2.0); RBC 3.41 Mil/uL (4.40-5.90); RED CELL DISTRIBUTION WIDTH 26.4 % (11.5-14.5); WHITE BLOOD COUNT 2.2 K/uL (4.8-10.8)
[2018-11-28] MEDS: (Novolin R) Insulin Human Regular 100 units/ml vial SC SCH ×3 (07:36→18:33)
[2018-11-28 09:52] LABS: ALB/GLOB RATIO 0.7 (1.0-2.1); ALBUMIN 2.5 g/dL (3.5-5.0); ALT/SGPT 34 U/L (21-72); AST/SGOT 51 U/L (17-59); BLOOD UREA NITROGEN 12 mg/dL (9-20); CALCIUM 8.2 mg/dl (8.6-10.4); GFR NON-AFRICAN AMERICAN > 60
[2018-11-28] MEDS ORDERED: Albumin Human 25% (12.5 gm/50 ml) IV ONE (18:24)
[2018-11-28 18:26] VITALS: TEMP 97.7; O2SAT 95
--- NOTE | 2018-11-28 18:37 | CP.PCM.DIS ---
<Leticia Francis - Last Filed: 11/28/18 18:53> Provider - Provider Date of Admission: 11/27/18 13:52 Attending physician: Juanjose Isaac DO Time Spent in preparation of Discharge (in minutes): 30 Diagnosis - Discharge Diagnosis (1) Ascites Status: Acute Hospital Course - Lab Results Lab Results: Most Recent Lab Values WBC 2.2 K/uL (4.8-10.8) L 11/28/18 07:02 RBC 3.41 Mil/uL (4.40-5.90) L 11/28/18 07:02 Hgb 7.6 g/dL (12.0-18.0) L 11/28/18 07:02 Hct 23.9 % (35.0-51.0) L 11/28/18 07:02 MCV 70.1 fL (80.0-94.0) L 11/28/18 07:02 MCH 22.4 pg (27.0-31.0) L 11/28/18 07:02 MCHC 32.0 g/dL (33.0-37.0) L 11/28/18 07:02 RDW 26.4 % (11.5-14.5) H 11/28/18 07:02 Plt Count 136 K/uL (130-400) 11/28/18 07:02 MPV 8.6 fL (7.2-11.7) 11/28/18 07:02 Neut % (Auto) 41.9 % (50.0-75.0) L 11/28/18 07:02 Lymph % (Auto) 33.0 % (20.0-40.0) 11/28/18 07:02 [place] % (Auto) 17.6 % (0.0-10.0) H 11/28/18 07:02 Eos % (Auto) 6.4 % (0.0-4.0) H 11/28/18 07:02 Baso % (Auto) 1.1 % (0.0-2.0) 11/28/18 07:02 Neut # (Auto) 0.9 K/uL (1.8-7.0) L 11/28/18 07:02 Lymph # (Auto) 0.7 K/uL (1.0-4.3) L 11/28/18 07:02 [place] # (Auto) 0.4 K/uL (0.0-0.8) 11/28/18 07:02 Eos # (Auto) 0.1 K/uL (0.0-0.7) 11/28/18 07:02 Baso # (Auto) 0.0 K/uL (0.0-0.2) 11/28/18 07:02 PT 19.0 SECONDS (9.7-12.2) H 11/28/18 07:02 INR 1.7 11/28/18 07:02 APTT 35 SECONDS (21-34) H 11/28/18 07:02 Sodium 136 mmol/L (132-148) 11/28/18 07:02 Potassium 3.9 mmol/L (3.6-5.2) 11/28/18 07:02 Chloride 107 mmol/L (98-107) 11/28/18 07:02 Carbon Dioxide 26 mmol/L (22-30) 11/28/18 07:02 Anion Gap 6 (10-20) L 11/28/18 07:02 BUN 12 mg/dL (9-20) 11/28/18 07:02 Creatinine 0.5 mg/dL (0.8-1.5) L 11/28/18 07:02 Est GFR ( Amer) > 60 11/28/18 07:02 Est GFR (Non-Af Amer) > 60 11/28/18 07:02 POC Glucose (mg/dL) 196 mg/dL (65-110) H 11/28/18 16:43 Random Glucose 124 mg/dL (75-110) H D 11/28/18 07:02 Calcium 8.2 mg/dl (8.6-10.4) L 11/28/18 07:02 Total Bilirubin 2.0 mg/dL (0.2-1.3) H 11/28/18 07:02 AST 51 U/L (17-59) 11/28/18 07:02 ALT 34 U/L (21-72) 11/28/18 07:02 Alkaline Phosphatase 145 U/L (38-126) H 11/28/18 07:02 Troponin I < 0.0120 ng/mL (0.00-0.120) 11/27/18 11:15 Total Protein 6.1 g/dL (6.3-8.3) L 11/28/18 07:02 Albumin 2.5 g/dL (3.5-5.0) L 11/28/18 07:02 Globulin 3.6 gm/dL (2.2-3.9) 11/28/18 07:02 Albumin/Globulin Ratio 0.7 (1.0-2.1) L 11/28/18 07:02 Stool Occult Blood Positive (NEGATIVE) H 11/27/18 13:52 Blood Type A POSITIVE 11/27/18 11:15 Antibody Screen Negative 11/27/18 11:15 - Hospital Course Hospital Course: Patient was evaluated for complaints of abdominal distension. Patient admitted for treatment of ascites with paracentesis. Pt's INR was elevated at 1.7 at admission; treated with 1 FFP and 2x Vitamin K 10mg sc. Pt's albumin was repleted with albumin both preoperatively and post operatively. Approximately 7 L of straw colored fluid was removed from RLQ of abdomen, with improvement in breathing and mobility. Patient discharged with prescriptions for home medications and instructed to follow up in clinic. HPI on admission: "Patient is a 63 year old male with PMHx of alcohol abuse, DM2, HTN sent by the clinic for evaluation and treatment of abdominal distension and reports of 2 weeks of rectal bleed. Pt states his abdominal distension began to return 1 week after his discharge in mid October. He was subsequently treated for same complaint in late October at [facility]. Pt reports bleeding upon defecation, noting drops of bright red blood in toilet, as well as on the toilet paper when wiping. Pt denies alcohol consumption since last discharge as he is making an effort to stay sober. Pt reports SOB 2/2 abdominal distension, and difficulty urinating. Denies chest pain, nausea, diarrhea. " Discharge Exam - Head Exam Head Exam: ATRAUMATIC, NORMAL INSPECTION, NORMOCEPHALIC - Eye Exam Eye Exam: EOMI, Normal appearance Pupil Exam: NORMAL ACCOMODATION - ENT Exam ENT Exam: Mucous Membranes Moist - Neck Exam Neck exam: Normal Inspection - Respiratory Exam Respiratory Exam: Decreased Breath Sounds, NORMAL BREATHING PATTERN, UNREMARKABLE - Cardiovascular Exam Cardiovascular Exam: Tachycardia, REGULAR RHYTHM, +S1, +S2 - GI/Abdominal Exam GI & Abdominal Exam: Distended, Soft. absent: Tenderness - Extremities Exam Extremities exam: normal inspection, pedal edema (2+) - Neurological Exam Neurological exam: Alert, Oriented x3 - Psychiatric Exam Psychiatric exam: Normal Affect, Normal Mood - Skin Skin Exam: Dry, Intact, Normal Color, Warm Discharge Plan - Discharge Medications Prescriptions: Furosemide [Lasix] 40 mg PO DAILY #30 tablet RX: Propranolol [Inderal] 10 mg PO BID #60 tab RX: Spironolactone 25 mg PO DAILY #30 tablet - Follow Up Plan Condition: GOOD Disposition: HOME/ ROUTINE Instructions: Gastrointestinal Bleeding (DC), Fluid in the Belly (Ascites) (DC) Additional Instructions: Patient is stable for discharge home. Patient was treated for ascites secondary to alcoholic liver disease with paracentesis. Patient instructed to abstain from drinking alcohol. Patient instructed to follow up with clinic for continued medical management. Patient will be given prescriptions for 30 days worth of medication. Patient is to fill prescriptions at pharmacy and take as instructed. Propanolol 10mg PO BID, take 2 daily, once in morning and once in evening Spironolactone 25mg PO daily, take 1 daily Lasix 40mg PO daily, take 1 daily Patient is to take all medication as instructed every day. Do not stop taking any medications unless instructed to do so by a physician. Patient to call clinic for emergent appointment or return to ED with worsening of symptoms Referrals: Chika Mukherjee MD [Staff Provider] - <Juanjose Isaac - Last Filed: 11/29/18 07:19> Provider - Provider Date of Admission: 11/27/18 13:52 Attending physician: Juanjose Isaac DO Hospital Course - Lab Results Lab Results: Most Recent Lab Values WBC 2.2 K/uL (4.8-10.8) L 11/28/18 07:02 RBC 3.41 Mil/uL (4.40-5.90) L 11/28/18 07:02 Hgb 7.6 g/dL (12.0-18.0) L 11/28/18 07:02 Hct 23.9 % (35.0-51.0) L 11/28/18 07:02 MCV 70.1 fL (80.0-94.0) L 11/28/18 07:02 MCH 22.4 pg (27.0-31.0) L 11/28/18 07:02 MCHC 32.0 g/dL (33.0-37.0) L 11/28/18 07:02 RDW 26.4 % (11.5-14.5) H 11/28/18 07:02 Plt Count 136 K/uL (130-400) 11/28/18 07:02 MPV 8.6 fL (7.2-11.7) 11/28/18 07:02 Neut % (Auto) 41.9 % (50.0-75.0) L 11/28/18 07:02 Lymph % (Auto) 33.0 % (20.0-40.0) 11/28/18 07:02 [place] % (Auto) 17.6 % (0.0-10.0) H 11/28/18 07:02 Eos % (Auto) 6.4 % (0.0-4.0) H 11/28/18 07:02 Baso % (Auto) 1.1 % (0.0-2.0) 11/28/18 07:02 Neut # (Auto) 0.9 K/uL (1.8-7.0) L 11/28/18 07:02 Lymph # (Auto) 0.7 K/uL (1.0-4.3) L 11/28/18 07:02 [place] # (Auto) 0.4 K/uL (0.0-0.8) 11/28/18 07:02 Eos # (Auto) 0.1 K/uL (0.0-0.7) 11/28/18 07:02 Baso # (Auto) 0.0 K/uL (0.0-0.2) 11/28/18 07:02 PT 19.0 SECONDS (9.7-12.2) H 11/28/18 07:02 INR 1.7 11/28/18 07:02 APTT 35 SECONDS (21-34) H 11/28/18 07:02 Sodium 136 mmol/L (132-148) 11/28/18 07:02 Potassium 3.9 mmol/L (3.6-5.2) 11/28/18 07:02 Chloride 107 mmol/L (98-107) 11/28/18 07:02 Carbon Dioxide 26 mmol/L (22-30) 11/28/18 07:02 Anion Gap 6 (10-20) L 11/28/18 07:02 BUN 12 mg/dL (9-20) 11/28/18 07:02 Creatinine 0.5 mg/dL (0.8-1.5) L 11/28/18 07:02 Est GFR ( Amer) > 60 11/28/18 07:02 Est GFR (Non-Af Amer) > 60 11/28/18 07:02 POC Glucose (mg/dL) 196 mg/dL (65-110) H 11/28/18 16:43 Random Glucose 124 mg/dL (75-110) H D 11/28/18 07:02 Calcium 8.2 mg/dl (8.6-10.4) L 11/28/18 07:02 Total Bilirubin 2.0 mg/dL (0.2-1.3) H 11/28/18 07:02 AST 51 U/L (17-59) 11/28/18 07:02 ALT 34 U/L (21-72) 11/28/18 07:02 Alkaline Phosphatase 145 U/L (38-126) H 11/28/18 07:02 Troponin I < 0.0120 ng/mL (0.00-0.120) 11/27/18 11:15 Total Protein 6.1 g/dL (6.3-8.3) L 11/28/18 07:02 Albumin 2.5 g/dL (3.5-5.0) L 11/28/18 07:02 Globulin 3.6 gm/dL (2.2-3.9) 11/28/18 07:02 Albumin/Globulin Ratio 0.7 (1.0-2.1) L 11/28/18 07:02 Stool Occult Blood Positive (NEGATIVE) H 11/27/18 13:52 Blood Type A POSITIVE 11/27/18 11:15 Antibody Screen Negative 11/27/18 11:15 Attending/Attestation - Attestation I have personally seen and examined this patient.: Yes I have fully participated in the care of the patient.: Yes I have reviewed all pertinent clinical information, including history, physical exam and plan: Yes Notes (Text): Medical attending: Patient was seen and examined by me. Reviewed the above note by the resident The patient was not in any acute distress when I came and saw The patient had a paracentesis with the help of ultrasound for local guidance He tolerated this very well and had albumin IV afterwards I hope the patient will take his medications however considering how he is I have my doubts. The last time he was discharged from here, I am told he took his medications for only one day and then stopped. Compliance may become an issue if he keeps returning Juanjose Isaac
--- NOTE | 2018-11-28 18:40 | PCM.PROC ---
Procedures Attestation:: I certify that I have explained the specified Operation(s) or Procedure(s), risks, benefits and reasonable alternatives to the Patient and/or other person responsible. The opportunity was given to ask questions and all questions answered - Paracentesis Consent Obtained: written consent Time Out Performed: Yes Indication: Ascites Procedure: therapeutic paracentesis Location: RLQ Local Anesthetic Used: lidocaine 1%
[2018-11-28 19:28] VITALS: BP 123/67; PULSE 96
[2018-11-28] MEDS ORDERED: Influenza Vaccine 60 mcg/0.5 mL SYR (4YR UP) IM ONE (19:52)
== END 2018-11-28 20:23 | disposition home or self-care (01) | DRG 280 ==
LOC: C.ER 09:47 → C.9E 13:52 → C.3T 15:46
PROVIDERS: ADMIT Hospitalist; ATTEND Hospitalist
PROC: 30233K1 Transfusion of Nonautologous Frozen Plasma into Peripheral Vein, Percutaneous Approach (ICD-10-PCS; 2018-11-27)
PROC: 0W9G3ZZ Drainage of Peritoneal Cavity, Percutaneous Approach (ICD-10-PCS; principal; 2018-11-28)
DX: K70.9 Alcoholic liver disease, unspecified (principal); R18.8 Other ascites; I10 Essential (primary) hypertension; K92.2 Gastrointestinal hemorrhage, unspecified; E11.9 Type 2 diabetes mellitus without complications; Y90.9 Presence of alcohol in blood, level not specified; K62.5 Hemorrhage of anus and rectum; Z91.14 Patient's other noncompliance with medication regimen

== ENCOUNTER 2018-12-02 18:28 | Emergency (ER) | payer OTHER ==
[2018-12-02 18:28] VITALS: BMI 29.8
--- NOTE | 2018-12-02 19:09 | C.PDOC ---
History Of Present Illness The patient is a 63 year old male with past medical history of alcohol abuse, liver cirrhosis, ascites, diabetes and hypertension. Patient was evaluated in this ED on 11/27/18 for GI bleed, abdominal distention and ascites. He underwent paracentesis during his hospital admission and was discharged home after the procedure. Patient returns to the ED for evaluation of abdominal pain, subjective fever and generalized weakness. Patient reports trouble eating/drinking due to his generalized weakness and says he feels like he is "going to ." He denies nausea, vomiting, diarrhea. Family present and state he has been weak but is eating well. He has been avoiding alcohol and does seem slightly nervous but has no signs of withdrawal. Time Seen by Provider: 12/02/18 18:34 Chief Complaint (Nursing): Abdominal Pain History Per: Patient History/Exam Limitations: no limitations Onset/Duration Of Symptoms: Days Current Symptoms Are (Timing): Still Present Location Of Pain/Discomfort: Diffuse Quality Of Discomfort: "Pain" Associated Symptoms: Fever. denies: Nausea, Vomiting, Diarrhea Additional History Per: Patient Past Medical History Reviewed: Historical Data, Nursing Documentation, Vital Signs Vital Signs: Last Vital Signs Temp 97.6 F 12/02/18 18:33 Pulse 75 12/02/18 18:33 Resp 20 12/02/18 18:33 BP 135/75 12/02/18 18:33 Pulse Ox 97 12/02/18 18:33 - Medical History PMH: Anemia Denies: Chronic Kidney Disease Surgical History: Endoscopy - [facility] Procedures DRAINAGE OF PERITONEAL CAVITY, PERCUTANEOUS APPROACH (11/27/18) DRAINAGE OF PERITONEAL CAVITY, PERCUTANEOUS APPROACH, DIAGN (10/30/18) EXCISION OF STOMACH, ENDO, DIAGN (06/08/16) INSPECTION OF LOWER INTESTINAL TRACT, ENDO (08/09/15) INSPECTION OF UPPER INTESTINAL TRACT, ENDO (08/09/15) INTRODUCTION OF OTHER THERAPEUTIC SUBSTANCE INTO UP GI, ENDO (06/08/16) TRANSFUSE NONAUT FROZEN PLASMA IN PERIPH VEIN, PERC (11/27/18) TRANSFUSE NONAUT RED BLOOD CELLS IN PERIPH VEIN, PERC (10/30/18) Family History: States: Unknown Family Hx - Social History Hx Alcohol Use: Yes Hx Substance Use: No - Immunization History Hx Tetanus Toxoid Vaccination: No Hx Influenza Vaccination: No Hx Pneumococcal Vaccination: No Review Of Systems Constitutional: Positive for: Fever, Weakness Gastrointestinal: Positive for: Abdominal Pain. Negative for: Nausea, Vomiting, Diarrhea Physical Exam - Physical Exam Appears: Non-toxic, Chronically Ill, Other (appears older than stated age ) Skin: Warm, Dry, Jaundice Head: Atraumatic, Normacephalic Eye(s): bilateral: Scleral Icterus Oral Mucosa: Dry Neck: Supple Chest: Symmetrical, No Deformity, No Tenderness Cardiovascular: Rhythm Regular, No Murmur Respiratory: Rales (bibasilar ), No Rhonchi, No Wheezing Gastrointestinal/Abdominal: Soft, Tenderness (diffuse ), Distention (slight), No Guarding, No Rebound, No Ascites (tense ) Extremity: Normal ROM, Capillary Refill (less than 2 seconds ) Neurological/Psych: Oriented x3, Normal Speech, Normal Cognition ED Course And Treatment - Laboratory Results Result Diagrams: 12/02/18 19:09 12/02/18 19:09 Lab Interpretation: No Changes Compared To Prior Results ECG: Interpreted By Me ECG Rhythm: Sinus Rhythm ECG Interpretation: No Acute Changes O2 Sat by Pulse Oximetry: 97 (on RA) Pulse Ox Interpretation: Normal Progress Note: Bloodwork, urinalysis, EKG ordered and reviewed. Reevaluation Time: 20:49 Reassessment Condition: Unchanged (Patient remains comfortable and in no distress. Family present) Disposition Counseled Patient/Family Regarding: Studies Performed, Diagnosis, Need For Followup - Disposition Referrals: [facility] [Outside] Disposition: HOME/ ROUTINE Disposition Time: 20:50 Condition: STABLE Instructions: Weakness (ED), Cirrhosis, Generalized Weakness (DC) Forms: [facility] (Honduran) - Clinical Impression Clinical Impression: Cirrhosis, Weakness - Scribe Statement The provider has reviewed the documentation as recorded by the Scribe (Tati Perry) Provider Attestation: All medical record entries made by the Scribe were at my direction and personally dictated by me. I have reviewed the chart and agree that the record accurately reflects my personal performance of the history, physical exam, medical decision making, and the department course for this patient. I have also personally directed, reviewed, and agree with the discharge instructions and disposition.
[2018-12-02 19:20] LABS: BASO % 0.8 % (0.0-2.0); EOS # 0.2 K/uL (0.0-0.7); EOS % 6.2 % (0.0-4.0); HEMOGLOBIN 9.4 g/dL (12.0-18.0); LYMPH # 0.8 K/uL (1.0-4.3); LYMPH % 30.6 % (20.0-40.0); MEAN CELL VOLUME 69.6 fL (80.0-94.0); MEAN CORPUSCULAR HEMOGLOBIN 20.9 pg (27.0-31.0); MONO # 0.4 K/uL (0.0-0.8); MONO % 16.7 % (0.0-10.0); NEUT # 1.1 K/uL (1.8-7.0); NEUT % 45.7 % (50.0-75.0); NRBC % 0.1 % (0.0-2.0); RBC 4.49 Mil/uL (4.40-5.90); RED CELL DISTRIBUTION WIDTH 26.8 % (11.5-14.5); WHITE BLOOD COUNT 2.5 K/uL (4.8-10.8)
[2018-12-02 19:28] LABS: INR 1.6; PROTHROMBIN TIME 17.5 SECONDS (9.7-12.2)
[2018-12-02 20:01] LABS: ALB/GLOB RATIO 0.8 (1.0-2.1); ALBUMIN 3.2 g/dL (3.5-5.0); ALT/SGPT 27 U/L (21-72); AST/SGOT 44 U/L (17-59); BLOOD UREA NITROGEN 10 mg/dL (9-20); CALCIUM 8.3 mg/dl (8.6-10.4); GFR NON-AFRICAN AMERICAN > 60; LIPASE 174 U/L (23-300)
[2018-12-02 21:09] VITALS: BP 128/76; PULSE 78; RESP 19; TEMP 98.7; O2SAT 95
--- NOTE | 2018-12-03 20:09 | CARD ---
APPROVED REPORT Date of service: 12/02/2018 EKG Measurement Heart [id number] <Conclusion> Sinus rhythm with premature atrial complexes Cannot rule out Anterior infarct, age undetermined Abnormal ECG
== END 2018-12-02 21:09 | disposition home or self-care (01) ==
LOC: C.ER 18:28
DX: K74.60 Unspecified cirrhosis of liver (principal); R53.1 Weakness

== ENCOUNTER 2018-12-11 10:44 | Emergency (ER) | payer OTHER ==
[2018-12-11 10:44] VITALS: BMI 29.8
[2018-12-11 11:09] VITALS: BP 114/67; PULSE 78; RESP 20; TEMP 97.8; O2SAT 96
--- NOTE | 2018-12-11 11:18 | C.PDOC ---
History Of Present Illness 63 year old male patient with history of liver psoriasis, alcohol abuse and ascites presents to the emergency room complaining of not feeling well. Patient was supposed to follow up today at the clinic at 9 am but when he told them he was feeling unwell, they sent him here to the emergency room. Patient is feeling tired and weak. Patient notes he is unable to sleep well and his medications keeps him up at night and constantly going to the bathroom. Patient also feels light headed. He denies fever, chest pain, shortness of breath and abdominal pain. Time Seen by Provider: 12/11/18 10:58 Chief Complaint (Nursing): Dizziness/Lightheaded History Per: Patient History/Exam Limitations: no limitations Onset/Duration Of Symptoms: Days Current Symptoms Are (Timing): Still Present Past Medical History Reviewed: Historical Data, Nursing Documentation, Vital Signs Vital Signs: Last Vital Signs Temp 97.8 F 12/11/18 11:08 Pulse 78 12/11/18 11:08 Resp 20 12/11/18 11:08 BP 114/67 12/11/18 11:08 Pulse Ox 96 12/11/18 11:08 - Medical History PMH: Anemia Surgical History: Endoscopy - [facility] Procedures DRAINAGE OF PERITONEAL CAVITY, PERCUTANEOUS APPROACH (11/27/18) DRAINAGE OF PERITONEAL CAVITY, PERCUTANEOUS APPROACH, DIAGN (10/30/18) EXCISION OF STOMACH, ENDO, DIAGN (06/08/16) INSPECTION OF LOWER INTESTINAL TRACT, ENDO (08/09/15) INSPECTION OF UPPER INTESTINAL TRACT, ENDO (08/09/15) INTRODUCTION OF OTHER THERAPEUTIC SUBSTANCE INTO UP GI, ENDO (06/08/16) TRANSFUSE NONAUT FROZEN PLASMA IN PERIPH VEIN, PERC (11/27/18) TRANSFUSE NONAUT RED BLOOD CELLS IN PERIPH VEIN, PERC (10/30/18) Family History: States: Unknown Family Hx - Social History Hx Alcohol Use: Yes (PAST) Hx Substance Use: No - Immunization History Hx Tetanus Toxoid Vaccination: No Hx Influenza Vaccination: No Hx Pneumococcal Vaccination: No Review Of Systems Constitutional: Positive for: Weakness, Other (feeling unwell). Negative for: Fever Cardiovascular: Positive for: Light Headedness. Negative for: Chest Pain Respiratory: Negative for: Shortness of Breath Gastrointestinal: Negative for: Abdominal Pain Physical Exam - Physical Exam Appears: Non-toxic, No Acute Distress, Other (elderly; chronically ill ) Skin: Warm, Dry Head: Atraumatic, Normacephalic Eye(s): bilateral: Normal Inspection Oral Mucosa: Moist Throat: Normal Chest: Symmetrical Cardiovascular: Rhythm Regular, No Murmur Respiratory: Normal Breath Sounds, No Rales, No Rhonchi, No Wheezing Gastrointestinal/Abdominal: Soft, No Tenderness, Ascites (slight) Back: No CVA Tenderness Extremity: Normal ROM (x4), No Pedal Edema Neurological/Psych: Oriented x3, Normal Speech ED Course And Treatment - Laboratory Results Result Diagrams: 12/11/18 11:31 12/11/18 11:31 ECG Rhythm: Sinus Rhythm Interpretation Of ECG: Low voltage QRS. Borderline ECG. Rate From EC O2 Sat by Pulse Oximetry: 96 (RA) Pulse Ox Interpretation: Normal Medical Decision Making Medical Decision Making: Plans: -- chem labs -- blood work -- EKG 1212 the patient is requesting to leave the ED. He states he has to get home and will not elaborate further. Labs still pending and ED evaluation is not complete which was explained. The patient does not want to wait any longer and refuses to be admitted, if needed. The patient is ambulatory and stable. Patient signs out AMA Disposition - Disposition Disposition: AGAINST MEDICAL ADVICE Disposition Time: 12:13 Condition: STABLE Instructions: Weakness (ED) - POA Present On Arrival: None - Clinical Impression Clinical Impression: Left against medical advice, Weakness - PA / [employer] / Resident Statement / has reviewed & agrees with the documentation as recorded. - Scribe Statement The provider has reviewed the documentation as recorded by the Fredy Velásquez Do All medical record entries made by the Scribe were at my direction and personally dictated by me. I have reviewed the chart and agree that the record accurately reflects my personal performance of the history, physical exam, medical decision making, and the department course for this patient. I have also personally directed, reviewed, and agree with the discharge instructions and disposition.
[2018-12-11 11:38] LABS: BASO % 1.3 % (0.0-2.0); EOS # 0.2 K/uL (0.0-0.7); EOS % 5.3 % (0.0-4.0); HEMOGLOBIN 8.6 g/dL (12.0-18.0); LYMPH # 0.8 K/uL (1.0-4.3); LYMPH % 26.8 % (20.0-40.0); MEAN CELL VOLUME 70.4 fL (80.0-94.0); MEAN CORPUSCULAR HGB CONC 31.3 g/dL (33.0-37.0); MEAN PLATELET VOLUME 8.8 fL (7.2-11.7); MONO # 0.5 K/uL (0.0-0.8); MONO % 17.5 % (0.0-10.0); NEUT # 1.5 K/uL (1.8-7.0); NEUT % 49.1 % (50.0-75.0); RBC 3.9 Mil/uL (4.40-5.90); WHITE BLOOD COUNT 3.1 K/uL (4.8-10.8)
[2018-12-11 11:46] LABS: INR 1.7; PROTHROMBIN TIME 18.7 SECONDS (9.7-12.2)
[2018-12-11 12:01] LABS: ALB/GLOB RATIO 0.7 (1.0-2.1); ALBUMIN 2.7 g/dL (3.5-5.0); ALT/SGPT 28 U/L (21-72); AST/SGOT 42 U/L (17-59); BLOOD UREA NITROGEN 11 mg/dL (9-20); GFR NON-AFRICAN AMERICAN > 60
--- NOTE | 2018-12-12 20:03 | CARD ---
APPROVED REPORT Date of service: 12/11/2018 EKG Measurement Heart [id number] <Conclusion> Normal sinus rhythm Low voltage QRS Borderline ECG
== END 2018-12-11 12:12 | disposition left against medical advice (07) ==
LOC: C.ER 10:44
DX: R53.1 Weakness (principal); L40.9 Psoriasis, unspecified; R18.8 Other ascites; D64.9 Anemia, unspecified; F10.10 Alcohol abuse, uncomplicated